=== PATIENT | male | born 1945 | race Caucasian/White ===

== ENCOUNTER 2022-07-13 12:04 | Inpatient (IN) | payer MEDICARE ==
[~2022-07-13] VITALS: Ht 175.3 cm; Wt 77.3 kg
[2022-07-13] MEDS ORDERED: albuterol 2.5 MG/3 ML nebule CONTNEB PRN ×2 (12:10→12:25)
--- NOTE | 2022-07-13 12:13 | NUR ---
PT PASSED STROKE ASSESSMENT FOR EMS. PT ABLE TO AMBULATE W/ASSIST TO GURNEY AND ANSWER QUESTIONS. ON ARRIVAL PT IS NOT RESPONSIVE.
[2022-07-13] MEDS ORDERED: ipratropium 0.5 MG/2.5ML nebule IH PRN (12:15)
[2022-07-13] MEDS ORDERED: LIDOcaine 2% 10ml TOPICAL JELLY (Urojet) TP ONE (12:15)
[2022-07-13 12:21] LABS: ABG BASE EXCESS 15.8 mmol/L (-2.0-2.0); ABG HCO3 51.3 mmol/L (22.0-26.0); ABG OXYGEN SATURATION 99.4 % (94-97); ABG PCO2 (T) > 150.0 mmHg (35.0-48.0); ABG PO2 (T) 287.6 mmHg (75.0-100.0); ALLEN'S TEST POSITIVE; FCOHb 0.5 % (0.0-3.9); FLOW 15 L/min; FMetHb 0.3 % (0.0-1.5); FO2Hb 98.6 % (94-97); TOTAL HEMOGLOBIN 12.4 G/dl (14.0-17.9)
[2022-07-13] MEDS ORDERED: normal saline 1000ML IV soln IVB ONE (12:25)
[2022-07-13] MEDS ORDERED: methylPREDNISolone sod succ 125mg/2ml vial IV ONE (12:25)
[2022-07-13] MEDS ORDERED: ipratropium 0.5 MG/2.5ML nebule IH ONE (12:25)
[2022-07-13] MEDS ORDERED: magnesium 2GM in 50ml NS 50 ML IV ONE (12:30)
[2022-07-13] MEDS ORDERED: cefepime 2g/NS 100ml ADVANTAGE 100 ML IV ONE (12:30)
[2022-07-13 12:34] LABS: HEMATOCRIT 35.9 % (42.0-52.0); HEMOGLOBIN 11.3 g/dl (14.0-17.9); MEAN CORPUSCULAR HEMOGLOBIN 31.7 PG (27.0-31.0); MEAN CORPUSCULAR HGB CONC 31.4 g/dL (33.0-36.5); RED BLOOD COUNT 3.56 X10'6 (4.70-6.10); WHITE BLOOD COUNT 8.7 X10'3 (4.5-11.0)
[2022-07-13 12:36] LABS: BASOPHILS % (AUTO) 0.1 % (0-1); EOSINOPHILS % (AUTO) 0 % (0-6); LYMPHOCYTES # (AUTO) 0.4 X10'3 (1.1-4.8); LYMPHOCYTES % (AUTO) 4.8 % (21-51); MEAN PLATELET VOLUME 8.9 FL (7.4-10.4); MONOCYTES # (AUTO) 0.6 X10'3 (0-0.9); MONOCYTES % (AUTO) 6.9 % (2-12); NEUTROPHILS # (AUTO) 7.7 X10'3 (1.8-7.7); NEUTROPHILS % (AUTO) 88.2 % (42-75); PLATELET COUNT 177 X10'3 (140-440); RED CELL DISTRIBUTION WIDTH 14.1 % (11.5-14.5)
[2022-07-13 12:38] LABS: D-DIMER 1.04 MG/L FEU (0-0.50)
[2022-07-13 12:40] LABS: CLARITY,URINE CLEAR (Clear); COLOR,URINE YELLOW (Yellow); GLUCOSE, URINE NEGATIVE (Neg); KETONES,URINE NEGATIVE (Neg); LEUKOCYTE ESTERASE ,URINE NEGATIVE (Neg); NITRITES, URINE NEGATIVE (Neg); OCCULT BLOOD,URINE LARGE (Neg); PROTEIN,URINE 100 mg/dl (Neg); UROBILINOGEN,URINE 0.2 E.U/dL (0.2-1.0)
[2022-07-13 12:45] LABS: UA COLLECTION TYPE NON-SPECIFIED
[2022-07-13 12:46] LABS: BACTERIA,URINE NONE SEEN /HPF (Neg); HYALINE CASTS 0-3 /LPF (NEGATIVE); MUCUS STRANDS FEW /LPF (Neg); RBC,URINE 0-2 /HPF (0-2); SQUAMOUS EPITHELIAL CELL,UR FEW /LPF (FEW); WBC,URINE 0-4 /HPF (0-4)
[2022-07-13 12:52] LABS: ALANINE AMINOTRANSFERASE 73 U/L (12-78); ALBUMIN/GLOBULIN RATIO 0.9 (1.1-1.5); ALKALINE PHOSPHATASE 87 IU/L (46-116); ASPARTATE AMINO TRANSFERASE 83 U/L (10-37); BILIRUBIN,TOTAL 0.3 MG/DL (0.1-1.0); BLOOD UREA NITROGEN 27 MG/DL (7-18); BUN/CREATININE RATIO 26.2 (5.4-32.0); CHLORIDE 99 MMOL/L (99-107); CREATININE 1.03 MG/DL (0.60-1.10); GLUCOSE 153 MG/DL (70-104); SODIUM 143 MMOL/L (135-145); TOTAL PROTEIN 8.3 G/DL (6.4-8.2); eGFR 70 ML/MIN
[2022-07-13 13:02] LABS: ANION GAP 1 (8-16)
[2022-07-13 13:05] LABS: POTASSIUM 6.2 MMOL/L (3.5-5.1); TOTAL CARBON DIOXIDE 42.7 MMOL/L (24-32)
[2022-07-13] MEDS ORDERED: dextrose 50%-water 50ml dispensing syringe IV ONE (13:20)
[2022-07-13] MEDS ORDERED: calcium chloride inj. 1,000 MG in normal saline 100ml IV soln 100 ML IV ONE ×4 (13:20)
[2022-07-13] MEDS ORDERED: insulin regular, human 10 units/0.1 ml syringe IV ONE (13:20)
[2022-07-13] MEDS ORDERED: aspirin 81mg tab.chew PO ONE (13:20)
[2022-07-13] MEDS ORDERED: iohexol 350MG/ML 100ml bottle IV ONE (13:24)
[2022-07-13] MEDS ORDERED: calcium chloride 100 MG/1 ML inj IV ONE (13:30)
[2022-07-13 13:37] LABS: ABG BASE EXCESS 11.7 mmol/L (-2.0-2.0); ABG OXYGEN SATURATION 91.9 % (94-97); ABG PCO2 (T) 98.7 mmHg (35.0-48.0); ABG PO2 (T) 58.4 mmHg (75.0-100.0); ALLEN'S TEST POSITIVE; FCOHb 0.7 % (0.0-3.9); FMetHb 0.1 % (0.0-1.5); FO2Hb 91.2 % (94-97); PATIENT TEMPERATURE 35.8; RESPIRATORY RATE 8 b/min
[2022-07-13 15:50] LABS: ABG BASE EXCESS 12.4 mmol/L (-2.0-2.0); ABG HCO3 42.6 mmol/L (22.0-26.0); ABG OXYGEN SATURATION 92.8 % (94-97); ABG PCO2 (T) 92.8 mmHg (35.0-48.0); ABG PO2 (T) 65.3 mmHg (75.0-100.0); ALLEN'S TEST POSITIVE; FCOHb 0.8 % (0.0-3.9); FMetHb 0.2 % (0.0-1.5); FO2Hb 91.9 % (94-97); PATIENT TEMPERATURE 37.1; RESPIRATORY RATE 8 b/min
[2022-07-13] MEDS ORDERED: morphine 4 MG/ML inj SYRINge IV ONE (16:00)
[2022-07-13] MEDS ORDERED: ondansetron/PF 4mg/2ml inj IV ONE (16:00)
[2022-07-13] MEDS ORDERED: FURO40TA4 PO (16:25)
[2022-07-13] MEDS ORDERED: IBUP-1985 PO (16:25)
[2022-07-13] MEDS ORDERED: ALBU18HF2 PO (16:25)
[2022-07-13] MEDS ORDERED: HYDR-3972 PO (16:25)
[2022-07-13] MEDS ORDERED: TRAZ-256 PO (16:25)
[2022-07-13] MEDS ORDERED: BACL20TA PO (16:25)
[2022-07-13] MEDS ORDERED: LISI40TA13 PO (16:25)
--- NOTE | 2022-07-13 16:26 | NUR ---
Medication reconciliation completed. RN advised son by beside to take medications back home since there are controlled medications (Lyle 10-325, trazadone)
[2022-07-13] MEDS ORDERED: diltiazem-D5W 125mg/125ml 125 ML IV SCH (16:40)
[2022-07-13] MEDS ORDERED: potassium Cl 40MEQ/1/2NS 520ml 520 ML IV PRN (16:40)
[2022-07-13] MEDS ORDERED: magnesium 4gm in 100ml NS 100 ML IV PRN (16:40)
[2022-07-13] MEDS ORDERED: acetaminophen 325mg tablet PO PRN ×2 (16:40)
[2022-07-13] MEDS ORDERED: ondansetron/PF 4mg/2ml inj IV PRN (16:40)
[2022-07-13] MEDS ORDERED: potassium Cl 20 mEq SR tablet PO PRN ×2 (16:40)
[2022-07-13] MEDS ORDERED: magnesium Cl slow-release 64mg tablet PO PRN (16:40)
[2022-07-13] MEDS ORDERED: morphine 2 MG/ML inj. syringe IV PRN (16:40)
[2022-07-13 16:43] LABS: ALBUMIN 3.8 G/DL (3.4-5.0); ANION GAP 1 (8-16); BLOOD UREA NITROGEN 26 MG/DL (7-18); BUN/CREATININE RATIO 27.1 (5.4-32.0); CHLORIDE 100 MMOL/L (99-107); CREATININE 0.96 MG/DL (0.60-1.10); GLUCOSE 154 MG/DL (70-104); POTASSIUM 5.1 MMOL/L (3.5-5.1); SODIUM 143 MMOL/L (135-145); eGFR 76 ML/MIN
[2022-07-13 16:51] LABS: CALCIUM 11.3 MG/DL (8.5-10.1)
[2022-07-13 16:52] LABS: TOTAL CARBON DIOXIDE 42.2 MMOL/L (24-32)
[2022-07-13] MEDS: diltiazem-NS 100mg/100ml 100 ML IV SCH (16:59)
[2022-07-13] MEDS: HYDROcodone/acetaminophen 5mg/325mg tablet PO PRN (17:48)
[2022-07-13] MEDS ORDERED: LORazepam 0.5 MG tablet PO PRN (18:20)
[2022-07-13] MEDS ORDERED: LORazepam 2 mg/ml vial IV PRN (18:20)
[2022-07-13] MEDS: levalbuterol 0.63mg/3ml nebule IH SCH ×2 (19:05→22:22)
[2022-07-13] MEDS: furosemide 40mg/4ml inj IV SCH (20:21)
[2022-07-13] MEDS: methylPREDNISolone sod succ 125mg/2ml vial IV SCH (20:27)
[2022-07-13] MEDS ORDERED: temazepam 15mg capsule PO PRN (21:00)
[2022-07-14] VITALS (8 sets, daily range): BP systolic 145–190; BP diastolic 86–116
[2022-07-14] MEDS: heparin, porcine 5000 units/ml vial SQ SCH ×3 (00:27→16:34)
[2022-07-14] MEDS: levalbuterol 0.63mg/3ml nebule IH SCH ×6 (02:27→23:13)
[2022-07-14 04:08] LABS: HEMOGLOBIN 10.9 g/dl (14.0-17.9); LYMPHOCYTES # (AUTO) 0.4 X10'3 (1.1-4.8); MEAN CORPUSCULAR HEMOGLOBIN 32.2 PG (27.0-31.0); MEAN CORPUSCULAR HGB CONC 32.3 g/dL (33.0-36.5); MONOCYTES # (AUTO) 0.1 X10'3 (0-0.9)
[2022-07-14 04:11] LABS: BASOPHILS % (AUTO) 0.3 % (0-1); EOSINOPHILS % (AUTO) 0.2 % (0-6); HEMATOCRIT 33.6 % (42.0-52.0); LYMPHOCYTES % (AUTO) 4.8 % (21-51); MEAN CORPUSCULAR VOLUME 99.5 FL (78-98); MEAN PLATELET VOLUME 9.6 FL (7.4-10.4); MONOCYTES % (AUTO) 1.7 % (2-12); NEUTROPHILS # (AUTO) 7.5 X10'3 (1.8-7.7); PLATELET COUNT 175 X10'3 (140-440); RED BLOOD COUNT 3.38 X10'6 (4.70-6.10); WHITE BLOOD COUNT 8.1 X10'3 (4.5-11.0)
[2022-07-14 04:29] LABS: ALANINE AMINOTRANSFERASE 69 U/L (12-78); ALBUMIN 3.7 G/DL (3.4-5.0); ALBUMIN/GLOBULIN RATIO 0.9 (1.1-1.5); ALKALINE PHOSPHATASE 83 IU/L (46-116); ANION GAP 2 (8-16); ASPARTATE AMINO TRANSFERASE 94 U/L (10-37); BILIRUBIN,TOTAL 0.4 MG/DL (0.1-1.0); BLOOD UREA NITROGEN 29 MG/DL (7-18); BUN/CREATININE RATIO 26.4 (5.4-32.0); CALCIUM 9.9 MG/DL (8.5-10.1); CHLORIDE 97 MMOL/L (99-107); GLUCOSE 197 MG/DL (70-104); POTASSIUM 4.6 MMOL/L (3.5-5.1); SODIUM 143 MMOL/L (135-145); TOTAL PROTEIN 7.7 G/DL (6.4-8.2); eGFR 65 ML/MIN
[2022-07-14 04:47] LABS: TOTAL CARBON DIOXIDE 43.7 MMOL/L (24-32)
[2022-07-14] MEDS: furosemide 40mg/4ml inj IV SCH ×2 (07:49→19:41)
[2022-07-14] MEDS: azithromycin/NS 500mg/250ml 250 ML IV SCH (07:50)
[2022-07-14] MEDS: methylPREDNISolone sod succ 125mg/2ml vial IV SCH ×2 (07:50→19:41)
[2022-07-14] MEDS: CefTRIAXone 2gm/D5W 50ml BAG 50 ML IV SCH (07:50)
[2022-07-14 11:53] LABS: ABG BASE EXCESS 22.4 mmol/L (-2.0-2.0); ABG OXYGEN SATURATION 95.6 % (94-97); ABG PCO2 (T) 74.2 mmHg (35.0-48.0); ABG PO2 (T) 77.2 mmHg (75.0-100.0); ALLEN'S TEST POSITIVE; FCOHb 0.3 % (0.0-3.9); FMetHb 0.1 % (0.0-1.5); FO2Hb 95.2 % (94-97); PATIENT TEMPERATURE 37.9; RESPIRATORY RATE 8 b/min; TOTAL HEMOGLOBIN 11.6 G/dl (14.0-17.9)
[2022-07-14] MEDS: diltiazem-NS 100mg/100ml 100 ML IV SCH (12:47)
[2022-07-14] MEDS: HYDROcodone/acetaminophen 5mg/325mg tablet PO PRN (16:27)
--- NOTE | 2022-07-14 17:40 | NUR ---
MD Bravo paged for hypertension 6402h Libert[place] Ibarra HTN 170-190s asymptomatic. May I have a PRN? Danna [id number]
[2022-07-14] MEDS ORDERED: ASPI-101 PO (19:19)
[2022-07-14] MEDS ORDERED: albuterol 2.5 MG/3 ML nebule NEB PRN (19:35)
[2022-07-14] MEDS ORDERED: hyDRALAzine 10mg tablet PO PRN (19:35)
[2022-07-14] MEDS ORDERED: HYDROcodone/acetaminophen 10/325mg tab PO PRN (20:05)
[2022-07-14] MEDS ORDERED: traZODone 50mg tablet PO PRN (20:15)
[2022-07-15] VITALS (15 sets, daily range): BP systolic 143–190; BP diastolic 78–103
[2022-07-15] MEDS: heparin, porcine 5000 units/ml vial SQ SCH ×2 (00:48→07:28)
[2022-07-15] MEDS: levalbuterol 0.63mg/3ml nebule IH SCH ×6 (04:20→23:09)
--- NOTE | 2022-07-15 07:10 | NUR ---
I received report from FABIAN Dyer. Pt had IV out upon original assessment with Mateo running. RN replaced PIV prior to leaving. Pt in no distress and vials same as baseline, will continue to monitor.
[2022-07-15 07:23] LABS: BASOPHILS % (AUTO) 0 % (0-1); EOSINOPHILS % (AUTO) 0 % (0-6); HEMATOCRIT 33.9 % (42.0-52.0); HEMOGLOBIN 11.2 g/dl (14.0-17.9); LYMPHOCYTES # (AUTO) 0.4 X10'3 (1.1-4.8); LYMPHOCYTES % (AUTO) 4.7 % (21-51); MEAN CORPUSCULAR HEMOGLOBIN 32.2 PG (27.0-31.0); MEAN CORPUSCULAR HGB CONC 33.1 g/dL (33.0-36.5); MEAN CORPUSCULAR VOLUME 97.5 FL (78-98); MONOCYTES # (AUTO) 0.4 X10'3 (0-0.9); MONOCYTES % (AUTO) 4.6 % (2-12); NEUTROPHILS % (AUTO) 90.7 % (42-75); PLATELET COUNT 188 X10'3 (140-440); RED BLOOD COUNT 3.48 X10'6 (4.70-6.10); RED CELL DISTRIBUTION WIDTH 13.7 % (11.5-14.5); WHITE BLOOD COUNT 8.8 X10'3 (4.5-11.0)
[2022-07-15] MEDS: diltiazem-NS 100mg/100ml 100 ML IV SCH (07:25)
[2022-07-15] MEDS: methylPREDNISolone sod succ 125mg/2ml vial IV SCH ×2 (07:30→20:32)
[2022-07-15] MEDS: furosemide 40mg/4ml inj IV SCH ×2 (07:30→20:33)
[2022-07-15] MEDS: lisinopril 20mg tablet PO SCH (07:30)
[2022-07-15] MEDS: HYDROcodone/acetaminophen 10/325mg tab PO PRN ×2 (07:35→17:30)
[2022-07-15 08:22] LABS: ALANINE AMINOTRANSFERASE 79 U/L (12-78); ALBUMIN 3.7 G/DL (3.4-5.0); ALBUMIN/GLOBULIN RATIO 0.9 (1.1-1.5); ALKALINE PHOSPHATASE 83 IU/L (46-116); ASPARTATE AMINO TRANSFERASE 66 U/L (10-37); BILIRUBIN,TOTAL 0.3 MG/DL (0.1-1.0); BLOOD UREA NITROGEN 37 MG/DL (7-18); CALCIUM 8.9 MG/DL (8.5-10.1); CHLORIDE 93 MMOL/L (99-107); CREATININE 1.12 MG/DL (0.60-1.10); GLUCOSE 220 MG/DL (70-104); POTASSIUM 3.5 MMOL/L (3.5-5.1); SODIUM 143 MMOL/L (135-145); TOTAL PROTEIN 7.7 G/DL (6.4-8.2); eGFR 64 ML/MIN
[2022-07-15 09:41] LABS: ANION GAP 0 (8-16)
[2022-07-15 09:43] LABS: TOTAL CARBON DIOXIDE 49.7 MMOL/L (24-32)
--- NOTE | 2022-07-15 10:01 | NUR ---
paged [phone] Amadou Ibarra. C02 49.7 up from 43.7 Danna PERALTA [phone]
[2022-07-15] MEDS: CefTRIAXone 2gm/D5W 50ml BAG 50 ML IV SCH (17:30)
[2022-07-15] MEDS: azithromycin/NS 500mg/250ml 250 ML IV SCH (17:31)
[2022-07-15] MEDS: apixaban 5mg tablet PO SCH (20:33)
[2022-07-16] VITALS (10 sets, daily range): BP systolic 100–155; BP diastolic 67–98
[2022-07-16] MEDS: HYDROcodone/acetaminophen 10/325mg tab PO PRN ×3 (01:33→23:08)
[2022-07-16] MEDS: levalbuterol 0.63mg/3ml nebule IH SCH ×6 (02:56→22:42)
[2022-07-16] MEDS: diltiazem-NS 100mg/100ml 100 ML IV SCH ×2 (05:35→22:39)
--- NOTE | 2022-07-16 07:11 | NUR ---
I received report from jseus Dyer addressed personal needs and pt is resting in no apparent distress, I will continue to monitor.
[2022-07-16] MEDS: CefTRIAXone 2gm/D5W 50ml BAG 50 ML IV SCH (07:36)
[2022-07-16] MEDS: azithromycin/NS 500mg/250ml 250 ML IV SCH (07:43)
[2022-07-16] MEDS: methylPREDNISolone sod succ 125mg/2ml vial IV SCH ×2 (07:49→20:39)
[2022-07-16] MEDS: apixaban 5mg tablet PO SCH ×2 (07:50→20:39)
[2022-07-16] MEDS: lisinopril 20mg tablet PO SCH (07:50)
[2022-07-16] MEDS: furosemide 40mg/4ml inj IV SCH ×2 (07:55→20:39)
[2022-07-16 08:21] LABS: BASOPHILS % (AUTO) 0 % (0-1); EOSINOPHILS % (AUTO) 0 % (0-6); HEMOGLOBIN 11.6 g/dl (14.0-17.9); LYMPHOCYTES # (AUTO) 0.3 X10'3 (1.1-4.8); MEAN CORPUSCULAR HEMOGLOBIN 32.5 PG (27.0-31.0); MEAN CORPUSCULAR HGB CONC 33.2 g/dL (33.0-36.5); MEAN CORPUSCULAR VOLUME 97.7 FL (78-98); MEAN PLATELET VOLUME 8.9 FL (7.4-10.4); MONOCYTES # (AUTO) 0.3 X10'3 (0-0.9); MONOCYTES % (AUTO) 4.6 % (2-12); NEUTROPHILS # (AUTO) 6.6 X10'3 (1.8-7.7); NEUTROPHILS % (AUTO) 91.4 % (42-75); PLATELET COUNT 183 X10'3 (140-440); RED BLOOD COUNT 3.58 X10'6 (4.70-6.10); RED CELL DISTRIBUTION WIDTH 14.2 % (11.5-14.5); WHITE BLOOD COUNT 7.3 X10'3 (4.5-11.0)
[2022-07-16 08:28] LABS: ALANINE AMINOTRANSFERASE 129 U/L (12-78); ALBUMIN 3.5 G/DL (3.4-5.0); ALBUMIN/GLOBULIN RATIO 0.9 (1.1-1.5); ALKALINE PHOSPHATASE 78 IU/L (46-116); ASPARTATE AMINO TRANSFERASE 64 U/L (10-37); BILIRUBIN,TOTAL 0.4 MG/DL (0.1-1.0); BLOOD UREA NITROGEN 33 MG/DL (7-18); CALCIUM 8.3 MG/DL (8.5-10.1); CHLORIDE 92 MMOL/L (99-107); CREATININE 0.97 MG/DL (0.60-1.10); GLUCOSE 213 MG/DL (70-104); SODIUM 141 MMOL/L (135-145); TOTAL PROTEIN 7.4 G/DL (6.4-8.2); eGFR 75 ML/MIN
[2022-07-16 08:47] LABS: ANION GAP -1 (8-16)
[2022-07-16 08:48] LABS: TOTAL CARBON DIOXIDE > 50 MMOL/L (24-32)
--- NOTE | 2022-07-16 08:59 | NUR ---
Page Sent promotional table spacer PAGER ID: [phone] MESSAGE: [id number] [place]. Ajith Co2 53.1. Danna @ 5441 (45 character message out of a maximum of 240) CLOSE [X] SEND ANOTHER PAGE Thank you for visiting [facility] promotional table spacer promotional table spacer
[2022-07-17] MEDS: levalbuterol 0.63mg/3ml nebule IH SCH ×6 (03:26→22:57)
[2022-07-17 04:11] VITALS: BP 140/84
[2022-07-17 06:00] VITALS: BP 129/89
--- NOTE | 2022-07-17 06:36 | NUR ---
Patient in room PCU 5756U. I have received report from Gina PERALTA and had the opportunity to ask questions and assume patient care. Pt is laying low fowlers in bed gettin am labs kaleb. Pt on bipap. No s/s of distress. No s/s of pain at this time. Pt on cardizem GTT running @ 5mg/hr. BLL, call light within reach, frequently used items in reach, frequent rounding, rn shift mgr socks on. Will continue to monitor.
[2022-07-17 07:24] LABS: BASOPHILS % (AUTO) 0.1 % (0-1); EOSINOPHILS % (AUTO) 0 % (0-6); HEMATOCRIT 35.4 % (42.0-52.0); HEMOGLOBIN 11.7 g/dl (14.0-17.9); LYMPHOCYTES # (AUTO) 0.3 X10'3 (1.1-4.8); LYMPHOCYTES % (AUTO) 4.7 % (21-51); MEAN CORPUSCULAR HEMOGLOBIN 32.6 PG (27.0-31.0); MEAN CORPUSCULAR VOLUME 98.9 FL (78-98); MEAN PLATELET VOLUME 8.8 FL (7.4-10.4); MONOCYTES # (AUTO) 0.3 X10'3 (0-0.9); MONOCYTES % (AUTO) 5.4 % (2-12); NEUTROPHILS # (AUTO) 5.8 X10'3 (1.8-7.7); NEUTROPHILS % (AUTO) 89.8 % (42-75); PLATELET COUNT 161 X10'3 (140-440); RED BLOOD COUNT 3.58 X10'6 (4.70-6.10); RED CELL DISTRIBUTION WIDTH 13.9 % (11.5-14.5); WHITE BLOOD COUNT 6.5 X10'3 (4.5-11.0)
[2022-07-17 07:46] LABS: ALANINE AMINOTRANSFERASE 176 U/L (12-78); ALBUMIN 2.7 G/DL (3.4-5.0); ALBUMIN/GLOBULIN RATIO 0.7 (1.1-1.5); ALKALINE PHOSPHATASE 70 IU/L (46-116); ANION GAP 4 (8-16); ASPARTATE AMINO TRANSFERASE 68 U/L (10-37); BILIRUBIN,TOTAL 0.4 MG/DL (0.1-1.0); BLOOD UREA NITROGEN 30 MG/DL (7-18); BUN/CREATININE RATIO 33.7 (5.4-32.0); CALCIUM 8.1 MG/DL (8.5-10.1); CHLORIDE 88 MMOL/L (99-107); CREATININE 0.89 MG/DL (0.60-1.10); GLUCOSE 226 MG/DL (70-104); POTASSIUM 4.1 MMOL/L (3.5-5.1); SODIUM 131 MMOL/L (135-145); TOTAL PROTEIN 6.7 G/DL (6.4-8.2); eGFR 83 ML/MIN
[2022-07-17] MEDS: CefTRIAXone 2gm/D5W 50ml BAG 50 ML IV SCH (07:53)
[2022-07-17] MEDS: lisinopril 20mg tablet PO SCH (07:54)
[2022-07-17] MEDS: apixaban 5mg tablet PO SCH ×2 (07:54→19:41)
[2022-07-17] MEDS: azithromycin/NS 500mg/250ml 250 ML IV SCH (07:54)
[2022-07-17] MEDS: methylPREDNISolone sod succ 125mg/2ml vial IV SCH ×2 (07:55→19:44)
[2022-07-17] MEDS: furosemide 40mg/4ml inj IV SCH ×2 (07:55→19:42)
[2022-07-17] MEDS: HYDROcodone/acetaminophen 10/325mg tab PO PRN ×2 (08:08→14:53)
[2022-07-17 11:00] VITALS: BP 155/77
[2022-07-17] MEDS: diltiazem 30mg tablet PO SCH ×2 (14:57→19:41)
[2022-07-17 18:00] VITALS: BP 151/56
--- NOTE | 2022-07-17 19:11 | NUR ---
Problems reprioritized. Patient report given, questions answered & plan of care reviewed with Elizabeth PERALTA.
[2022-07-17 22:00] VITALS: BP 135/63
[2022-07-18 02:00] VITALS: BP 154/99
[2022-07-18] MEDS: diltiazem 30mg tablet PO SCH ×3 (02:10→14:29)
[2022-07-18] MEDS: levalbuterol 0.63mg/3ml nebule IH SCH ×3 (03:20→11:04)
[2022-07-18] MEDS: HYDROcodone/acetaminophen 10/325mg tab PO PRN ×2 (03:33→12:59)
[2022-07-18 06:00] VITALS: BP 162/93
--- NOTE | 2022-07-18 06:30 | NUR ---
Patient in room PCU 3015. I have received report from FABIAN RUEDA, and had the opportunity to ask questions and assume patient care.
--- NOTE | 2022-07-18 06:54 | NUR ---
Problems reprioritized. Patient report given, questions answered & plan of care reviewed with Perla PERALTA.
[2022-07-18 07:04] LABS: ALANINE AMINOTRANSFERASE 233 U/L (12-78); ALBUMIN 3.3 G/DL (3.4-5.0); ALBUMIN/GLOBULIN RATIO 0.9 (1.1-1.5); ALKALINE PHOSPHATASE 87 IU/L (46-116); ASPARTATE AMINO TRANSFERASE 89 U/L (10-37); BILIRUBIN,TOTAL 0.3 MG/DL (0.1-1.0); BLOOD UREA NITROGEN 31 MG/DL (7-18); BUN/CREATININE RATIO 29.8 (5.4-32.0); CALCIUM 8.2 MG/DL (8.5-10.1); CHLORIDE 92 MMOL/L (99-107); CREATININE 1.04 MG/DL (0.60-1.10); GLUCOSE 205 MG/DL (70-104); POTASSIUM 3.2 MMOL/L (3.5-5.1); SODIUM 140 MMOL/L (135-145); TOTAL PROTEIN 6.9 G/DL (6.4-8.2); eGFR 70 ML/MIN
[2022-07-18 07:09] LABS: BASOPHILS % (AUTO) 0 % (0-1); EOSINOPHILS % (AUTO) 0 % (0-6); HEMATOCRIT 37.7 % (42.0-52.0); HEMOGLOBIN 12.4 g/dl (14.0-17.9); LYMPHOCYTES # (AUTO) 0.5 X10'3 (1.1-4.8); LYMPHOCYTES % (AUTO) 5.6 % (21-51); MEAN CORPUSCULAR HEMOGLOBIN 31.8 PG (27.0-31.0); MEAN CORPUSCULAR HGB CONC 32.9 g/dL (33.0-36.5); MEAN CORPUSCULAR VOLUME 96.7 FL (78-98); MEAN PLATELET VOLUME 8.9 FL (7.4-10.4); MONOCYTES # (AUTO) 1.2 X10'3 (0-0.9); NEUTROPHILS # (AUTO) 6.5 X10'3 (1.8-7.7); NEUTROPHILS % (AUTO) 79.4 % (42-75); PLATELET COUNT 198 X10'3 (140-440); RED CELL DISTRIBUTION WIDTH 13.6 % (11.5-14.5); WHITE BLOOD COUNT 8.2 X10'3 (4.5-11.0)
[2022-07-18 07:36] LABS: ANION GAP -1 (8-16)
[2022-07-18 07:38] LABS: TOTAL CARBON DIOXIDE 49.4 MMOL/L (24-32)
--- NOTE | 2022-07-18 07:42 | NUR ---
PAGE SENT PAGER ID: [phone] MESSAGE: [id number], ANA ROWAN, CRITICAL LAB CO2 49.4. PT'S K 3.2. MAY I PLEASE HAVE ELECTROLYE REPLACEMENTS? THANK YOU, JNEELLE Sanchez [phone]
[2022-07-18] MEDS: furosemide 40mg/4ml inj IV SCH (08:20)
[2022-07-18] MEDS: methylPREDNISolone sod succ 125mg/2ml vial IV SCH (08:24)
[2022-07-18] MEDS: CefTRIAXone 2gm/D5W 50ml BAG 50 ML IV SCH (08:24)
[2022-07-18] MEDS: lisinopril 20mg tablet PO SCH (08:27)
[2022-07-18] MEDS: apixaban 5mg tablet PO SCH (08:27)
[2022-07-18] MEDS ORDERED: potassium Cl 20 mEq SR tablet PO PRN (09:40)
[2022-07-18] MEDS ORDERED: magnesium 4gm in 100ml NS 100 ML IV PRN (09:40)
[2022-07-18] MEDS ORDERED: magnesium Cl slow-release 64mg tablet PO PRN (09:40)
[2022-07-18] MEDS ORDERED: potassium Cl 40MEQ/1/2NS 520ml 520 ML IV PRN (09:40)
[2022-07-18] MEDS: azithromycin/NS 500mg/250ml 250 ML IV SCH (09:43)
[2022-07-18 10:00] LABS: MAGNESIUM 2.4 MG/DL (1.5-2.4)
[2022-07-18] MEDS: potassium Cl 20 mEq SR tablet PO PRN ×2 (10:35→14:29)
[2022-07-18 11:03] VITALS: BP 143/88
[2022-07-18 14:30] VITALS: BP 147/91
--- NOTE | 2022-07-18 14:55 | NUR ---
PT STABLE FOR TRANSFER PER MD. BIPAP MASK WAS SENT WITH PT. HAND OFF GIVEN TO FABIAN AMAYA AT [facility]. PT TRANSFERRED BY TRANSFER SERVICE. TELE BOX REMOVED. PIV'S REMOVED WITH TIPS INTACT.
[2022-07-18] MEDS ORDERED: K and/or MAG REPLACEMENT MC SCH (20:00)
== END 2022-07-18 15:10 | DRG 189 ==
LOC: ER 12:05 → ED HOLD 16:46 → EDBEDREQ 07-14 04:44 → PCU 3S 07-14 14:19
PROVIDERS: ADMIT Internal Medicine; ATTEND Internal Medicine
PROC: 5A09357 Assistance with Respiratory Ventilation, Less than 24 Consecutive Hours, Continuous Positive Airway Pressure (ICD-10-PCS; principal; 2022-07-13)
PROC: 5A09357 Assistance with Respiratory Ventilation, Less than 24 Consecutive Hours, Continuous Positive Airway Pressure (ICD-10-PCS; 2022-07-15)
PROC: 5A09357 Assistance with Respiratory Ventilation, Less than 24 Consecutive Hours, Continuous Positive Airway Pressure (ICD-10-PCS; 2022-07-16)
PROC: 0W993ZZ Drainage of Right Pleural Cavity, Percutaneous Approach (ICD-10-PCS; 2022-07-16)
PROC: 5A09357 Assistance with Respiratory Ventilation, Less than 24 Consecutive Hours, Continuous Positive Airway Pressure (ICD-10-PCS; 2022-07-17)
PROC: 5A09357 Assistance with Respiratory Ventilation, Less than 24 Consecutive Hours, Continuous Positive Airway Pressure (ICD-10-PCS; 2022-07-18)
DX: J96.20 Acute and chronic respiratory failure, unspecified whether with hypoxia or hypercapnia (principal); I21.A1 Myocardial infarction type 2; I50.23 Acute on chronic systolic (congestive) heart failure; I48.92 Unspecified atrial flutter; J91.8 Pleural effusion in other conditions classified elsewhere; I11.0 Hypertensive heart disease with heart failure; I48.91 Unspecified atrial fibrillation; E87.5 Hyperkalemia; Z20.822 Contact with and (suspected) exposure to COVID-19; J43.9 Emphysema, unspecified; Z87.891 Personal history of nicotine dependence; Z99.81 Dependence on supplemental oxygen
CPT/HCPCS: 36415; 36600; 70450; 71045; 71275; 76604; 80048; 80053; 81001; 82803; 82948; 83605; 83735; 83880; 84145; 84484; 85018; 85025; 85379; 87040; 87502; 87503; 87811; 93005; 93308; 94640; 94660; 94760; 97116; 97161; 97530; 99291; A7015; G0378; J0456; J0692; J0696; J1644; J1815; J1940; J2270; J2405; J2930; J3475; J3490; J7030; J7040; J7614; Q9967

== ENCOUNTER 2022-09-23 19:51 | Inpatient (IN) | payer MEDICARE ==
[~2022-09-23] VITALS: Ht 172.7 cm; Wt 81.5 kg
[~2022-09-23 19:51] MED LIST: ACET-1013 PO; ALBU18HF2 PO; AMIO200T67 PO; APIX5TAB3 PO; ASPI-101 PO; ATOR20TA66 PO; BISA-172 PO; FLUT1BLS4 INH; FURO40TA4 PO; GLUC1KIT IM; HYDR-3972 PO; INSU100C10 SQ; LEVA0.6319 NEB; LISI10TA27 PO; MAGN400O6 PO; METF-436 PO; NA P133E4 RC; POTA-207 PO; TEMA15CA PO; TRAZ-251 PO
[2022-09-23] MEDS ORDERED: ipratropium 0.5 MG/2.5ML nebule IH ONE (20:00)
[2022-09-23] MEDS ORDERED: albuterol 2.5 MG/3 ML nebule CONTNEB PRN (20:00)
[2022-09-23] MEDS ORDERED: methylPREDNISolone sod succ 125mg/2ml vial IV ONE (20:05)
[2022-09-23] MEDS ORDERED: magnesium 2GM in 50ml NS 50 ML IV ONE (20:10)
[2022-09-23 20:21] LABS: BASOPHILS # (AUTO) 0.1 X10'3 (0-0.2); BASOPHILS % (AUTO) 0.8 % (0-1); EOSINOPHILS # (AUTO) 0.3 X10'3 (0-0.9); EOSINOPHILS % (AUTO) 2.1 % (0-6); HEMATOCRIT 39.6 % (42.0-52.0); HEMOGLOBIN 12.7 g/dl (14.0-17.9); LYMPHOCYTES # (AUTO) 2.2 X10'3 (1.1-4.8); LYMPHOCYTES % (AUTO) 17.5 % (21-51); MEAN CORPUSCULAR HEMOGLOBIN 31.8 PG (27.0-31.0); MEAN CORPUSCULAR HGB CONC 32.1 g/dL (33.0-36.5); MEAN CORPUSCULAR VOLUME 99.3 FL (78-98); MEAN PLATELET VOLUME 8.2 FL (7.4-10.4); MONOCYTES # (AUTO) 0.9 X10'3 (0-0.9); MONOCYTES % (AUTO) 7.3 % (2-12); NEUTROPHILS # (AUTO) 8.9 X10'3 (1.8-7.7); NEUTROPHILS % (AUTO) 72.3 % (42-75); PLATELET COUNT 239 X10'3 (140-440); RED BLOOD COUNT 3.99 X10'6 (4.70-6.10); RED CELL DISTRIBUTION WIDTH 14.9 % (11.5-14.5); WHITE BLOOD COUNT 12.4 X10'3 (4.5-11.0)
[2022-09-23 20:30] LABS: ABG BASE EXCESS 1.1 mmol/L (-2.0-2.0); ABG OXYGEN SATURATION 98.8 % (94-97); ABG PO2 (T) 146.9 mmHg (75.0-100.0); ALLEN'S TEST POSITIVE; FCOHb 0.8 % (0.0-3.9); FMetHb 0.3 % (0.0-1.5); FO2Hb 97.7 % (94-97); RESPIRATORY RATE 12 b/min; TOTAL HEMOGLOBIN 13.4 G/dl (14.0-17.9)
[2022-09-23 20:33] LABS: ALANINE AMINOTRANSFERASE 24 U/L (12-78); ALBUMIN 3.8 G/DL (3.4-5.0); ALKALINE PHOSPHATASE 106 IU/L (46-116); ANION GAP 8 (8-16); ASPARTATE AMINO TRANSFERASE 21 U/L (10-37); BILIRUBIN,TOTAL 0.3 MG/DL (0.1-1.0); BLOOD UREA NITROGEN 13 MG/DL (7-18); BUN/CREATININE RATIO 10.2 (10.0-20.0); CALCIUM 8.8 MG/DL (8.5-10.1); CHLORIDE 99 MMOL/L (99-107); CREATININE 1.27 MG/DL (0.60-1.10); GLUCOSE 352 MG/DL (70-104); POTASSIUM 4.9 MMOL/L (3.5-5.1); SODIUM 138 MMOL/L (135-145); TOTAL CARBON DIOXIDE 31.3 MMOL/L (24-32); TOTAL PROTEIN 7.8 G/DL (6.4-8.2); eGFR 55 ML/MIN
[2022-09-23] MEDS ORDERED: cefepime 2g/NS 100ml ADVANTAGE 100 ML IV ONE (21:00)
[2022-09-23] MEDS ORDERED: magnesium 4gm in 100ml NS 100 ML IV PRN (21:25)
[2022-09-23] MEDS ORDERED: magnesium hydroxide 30ml (MOM) UD suspension PO PRN (21:25)
[2022-09-23] MEDS ORDERED: potassium Cl 20 mEq SR tablet PO PRN ×2 (21:25)
[2022-09-23] MEDS ORDERED: ondansetron/PF 4mg/2ml inj IV PRN (21:25)
[2022-09-23] MEDS ORDERED: mag hydrox/Alum hydrox/simeth 30ml oral suspension PO PRN (21:25)
[2022-09-23] MEDS ORDERED: acetaminophen 325mg tablet PO PRN (21:25)
[2022-09-23] MEDS ORDERED: magnesium Cl slow-release 64mg tablet PO PRN (21:25)
[2022-09-23] MEDS ORDERED: potassium Cl 40MEQ/1/2NS 520ml 520 ML IV PRN (21:25)
[2022-09-23] MEDS ORDERED: diltiazem 5mg/ml 5ml inj. IV ONE (21:35)
[2022-09-23] MEDS ORDERED: aspirin 81mg tab.chew PO ONE (22:00)
[2022-09-23] MEDS ORDERED: DEXTROSE 15 GM of carb/4 tabs (each vial/BOTTLE has 4 tablets) PO PRN ×2 (22:10)
[2022-09-23] MEDS ORDERED: glucagon, human recombinant 1mg kit SUBCUT PRN (22:10)
[2022-09-23] MEDS ORDERED: MESSAGE TO PHARMACY PO ONE (22:10)
[2022-09-23] MEDS ORDERED: pantoprazole 40mg IV 80 MG in normal saline 100ml IV soln 100 ML IV ONE (22:10)
[2022-09-23] MEDS ORDERED: dextrose 50%-water 50ml dispensing syringe IV PRN ×2 (22:10)
[2022-09-23 22:25] LABS: D-DIMER 0.42 MG/L FEU (0-0.50)
[2022-09-23] MEDS: normal saline 1000ml 1,000 ML IV SCH (22:26)
[2022-09-23 22:37] LABS: CREATINE KINASE 78 U/L (39-308)
[2022-09-24] VITALS (12 sets, daily range): BP systolic 114–177; BP diastolic 67–122
[2022-09-24 00:06] LABS: CLARITY,URINE SLIGHTLY CLOUDY (Clear); COLOR,URINE YELLOW (Yellow); GLUCOSE, URINE NEGATIVE (Neg); KETONES,URINE NEGATIVE (Neg); LEUKOCYTE ESTERASE ,URINE NEGATIVE (Neg); NITRITES, URINE NEGATIVE (Neg); OCCULT BLOOD,URINE TRACE-INTACT (Neg); PROTEIN,URINE 100 mg/dl (Neg); UROBILINOGEN,URINE 0.2 E.U/dL (0.2-1.0)
[2022-09-24 00:10] LABS: UA COLLECTION TYPE FOLEY CATH
[2022-09-24 00:18] LABS: BACTERIA,URINE FEW /HPF (Neg); SQUAMOUS EPITHELIAL CELL,UR FEW /LPF (FEW)
[2022-09-24 00:19] LABS: COARSE GRANULAR CAST 0-3 /LPF (NEGATIVE)
[2022-09-24 00:32] LABS: URINE AMPHETAMINE SCREEN NEGATIVE (Neg); URINE BARBITUATE SCREEN NEGATIVE (Neg); URINE BENZODIAZEPINES SCREEN NEGATIVE (Neg); URINE CANNABINOID SCREEN NEGATIVE (Neg); URINE COCAINE SCREEN NEGATIVE (Neg); URINE METHADONE SCREEN NEGATIVE (Neg); URINE OPIATE SCREEN NEGATIVE (Neg); URINE PHENCYCLIDINE SCREEN NEGATIVE (Neg)
[2022-09-24] MEDS ORDERED: MELA3TAB70 PO (00:37)
[2022-09-24] MEDS ORDERED: CYAN100082 PO (00:37)
[2022-09-24] MEDS ORDERED: POTA-82 PO (00:37)
[2022-09-24] MEDS ORDERED: AMIO200T27 PO (00:37)
[2022-09-24] MEDS ORDERED: HYDR-3972 PO (00:37)
[2022-09-24] MEDS ORDERED: ATOR40TA71 PO (00:47)
[2022-09-24] MEDS ORDERED: APIX5TAB3 PO (00:47)
[2022-09-24] MEDS ORDERED: FLUT1BLS4 INH (00:47)
[2022-09-24] MEDS ORDERED: LISI20TA28 PO (00:47)
[2022-09-24] MEDS ORDERED: ASPI-1071 PO (00:47)
[2022-09-24] MEDS ORDERED: ALBU18HF2 INH (00:47)
[2022-09-24] MEDS ORDERED: TIZA4CAP PO (00:47)
[2022-09-24] MEDS ORDERED: FURO-150 PO (00:47)
[2022-09-24] MEDS ORDERED: TEMA15CA5 PO (00:47)
[2022-09-24] MEDS ORDERED: FURO40TA4 PO (00:55)
--- NOTE | 2022-09-24 01:05 | NUR ---
patient requesting to be put back on Bipap c/o "feeling tight". Stable oxygen saturation.
[2022-09-24] MEDS ORDERED: temazepam 15mg capsule PO PRN (02:40)
[2022-09-24 06:07] LABS: BASOPHILS % (AUTO) 0.3 % (0-1); EOSINOPHILS % (AUTO) 0 % (0-6); HEMATOCRIT 36.9 % (42.0-52.0); LYMPHOCYTES # (AUTO) 0.3 X10'3 (1.1-4.8); LYMPHOCYTES % (AUTO) 4.4 % (21-51); MEAN CORPUSCULAR HEMOGLOBIN 32.1 PG (27.0-31.0); MEAN CORPUSCULAR HGB CONC 32.5 g/dL (33.0-36.5); MEAN CORPUSCULAR VOLUME 98.7 FL (78-98); MEAN PLATELET VOLUME 9.1 FL (7.4-10.4); MONOCYTES # (AUTO) 0.1 X10'3 (0-0.9); MONOCYTES % (AUTO) 0.9 % (2-12); NEUTROPHILS # (AUTO) 6.3 X10'3 (1.8-7.7); NEUTROPHILS % (AUTO) 94.4 % (42-75); PLATELET COUNT 196 X10'3 (140-440); RED BLOOD COUNT 3.73 X10'6 (4.70-6.10); RED CELL DISTRIBUTION WIDTH 14.7 % (11.5-14.5); WHITE BLOOD COUNT 6.7 X10'3 (4.5-11.0)
[2022-09-24 06:20] LABS: ALANINE AMINOTRANSFERASE 26 U/L (12-78); ALBUMIN 3.4 G/DL (3.4-5.0); ALBUMIN/GLOBULIN RATIO 0.9 (1.1-1.5); ALKALINE PHOSPHATASE 85 IU/L (46-116); ANION GAP 5 (8-16); ASPARTATE AMINO TRANSFERASE 17 U/L (10-37); BILIRUBIN,TOTAL 0.3 MG/DL (0.1-1.0); BLOOD UREA NITROGEN 15 MG/DL (7-18); BUN/CREATININE RATIO 14.9 (10.0-20.0); CALCIUM 8.8 MG/DL (8.5-10.1); CHLORIDE 101 MMOL/L (99-107); CREATININE 1.01 MG/DL (0.60-1.10); GLUCOSE 248 MG/DL (70-104); MAGNESIUM 2.5 MG/DL (1.5-2.4); PHOSPHORUS 3.4 MG/DL (2.3-4.5); SODIUM 139 MMOL/L (135-145); TOTAL PROTEIN 7.3 G/DL (6.4-8.2); eGFR 72 ML/MIN
--- NOTE | 2022-09-24 06:49 | NUR ---
Patient in room ORTHO 4023. I have received report from Ina PERALTA and had the opportunity to ask questions and assume patient care.
[2022-09-24] MEDS: ipratropium/albuterol 3ml nebule NEB PRN ×2 (07:10→12:12)
[2022-09-24 07:15] LABS: APTT 26 SECONDS (22-32)
[2022-09-24 07:25] LABS: ABG HCO3 30.9 mmol/L (22.0-26.0); ABG OXYGEN SATURATION 98.6 % (94-97); ABG PCO2 (T) 57.2 mmHg (35.0-48.0); ABG PO2 (T) 135.9 mmHg (75.0-100.0); ALLEN'S TEST POSITIVE; FMetHb 0.2 % (0.0-1.5); FO2Hb 98.4 % (94-97); PEEP 8 cm H2O; RESPIRATORY RATE 10 b/min; TOTAL HEMOGLOBIN 12.5 G/dl (14.0-17.9)
--- NOTE | 2022-09-24 07:49 | NUR ---
PAGER ID: [phone] MESSAGE: [id number] [place] Patient doesn't have a diet order. Thank you Gris MO x [phone]
[2022-09-24] MEDS ORDERED: tizanidine 4mg tablet PO SCH ×2 (08:00→10:22)
[2022-09-24] MEDS: K and/or MAG REPLACEMENT MC SCH ×2 (08:00→19:04)
[2022-09-24] MEDS ORDERED: aspirin 81mg tab.chew PO SCH (08:30)
[2022-09-24] MEDS: normal saline 1000ml 1,000 ML IV SCH (08:32)
[2022-09-24] MEDS: aspirin 81mg, enteric-coated 1 TAB TABLET.DR PO SCH (08:32)
[2022-09-24] MEDS: atorvastatin 20mg tablet PO SCH (08:33)
[2022-09-24] MEDS: lisinopril 20mg tablet PO SCH (08:33)
[2022-09-24] MEDS: apixaban 5mg tablet PO SCH ×2 (08:33→19:02)
[2022-09-24] MEDS: amiodarone 200mg tablet PO SCH (08:33)
[2022-09-24] MEDS: docusate sod 100mg capsule PO SCH ×2 (08:33→19:02)
--- NOTE | 2022-09-24 08:47 | NUR ---
Spoke with Dr Gordon about patient not having a diet order. He gave verbal order for HH/ CC diet.
[2022-09-24] MEDS: methylPREDNISolone sod succ 125mg/2ml vial IV SCH ×2 (09:18→19:03)
[2022-09-24] MEDS: CefTRIAXone/D5W-Rocephin 1gm 50 ML IV SCH (09:18)
--- NOTE | 2022-09-24 09:27 | NUR ---
promotional table spacer PAGER ID: [phone] MESSAGE: [id number] Fred patient got removed from Bi-pap and is now having chest pain it isn't radiating at this time. We are going to do another EKG. Can we get trops? Thank you Gris MO [phone]
[2022-09-24] MEDS ORDERED: furosemide 40mg/4ml inj IV STA (09:58)
--- NOTE | 2022-09-24 10:00 | NUR ---
0927 Patient began complaining of pressure in his chest to RN. Bi-pap was removed around 0900 by RT and swapped to NC 2L. 0930 BP 172/155 pulse 136, 0931 BP 152/122 pulse 136. environmental health and safety intern called and rapid @0936 BP 128/92 and pulse 108. EKG ran. Opal melgar RN from CICU came and evaluated patient. CICU charge believes it is due to respiratory issues. Bi-pap put back on patient. EKG reviewed by ER MD. 943 BP 158/104 Pulse 136. environmental health and safety intern gave scheduled Solumedrol. Dr Gordon came in and evaluated patient. Gave verbal order for 40 mg Lasix BID and a 1x dose now. Also stop the continuous NS.
[2022-09-24] MEDS: azithromycin/NS 500mg/250ml 250 ML IV SCH (10:04)
--- NOTE | 2022-09-24 10:21 | NUR ---
Patient refused medication, he normally takes it at night.
[2022-09-24] MEDS: insulin Lispro (HumaLOG) vial - multi-dose SQ SCH (13:20)
--- NOTE | 2022-09-24 15:10 | NUR ---
PAGER ID: [phone] MESSAGE: [id number] Adrian Ibarra Patients HR is still in 130s [id number]
--- NOTE | 2022-09-24 16:21 | NUR ---
PAGER ID: [phone] MESSAGE: [id number] Fred BP 114/67, HR 136, RR 15. Thank you Gris MO [phone]
[2022-09-24] MEDS: HYDROcodone/acetaminophen 10/325mg tab PO PRN ×2 (17:39→23:19)
--- NOTE | 2022-09-24 17:46 | NUR ---
PAGER ID: [phone] MESSAGE: [id number] Fred Patient's HR sustaining 140 for more than 5 minutes, RR 22, BP: 148/109on the R and 151/104 on the L. He is also requesting nasal spray. Thank you Gris MO [phone]
[2022-09-24] MEDS ORDERED: salt irrigation nasal spray 45 ML SPRAY NS PRN (17:50)
[2022-09-24] MEDS ORDERED: diltiazem CD 180mg cap (once-daily) PO ONE (17:50)
--- NOTE | 2022-09-24 17:51 | NUR ---
Spoke with Dr Gordon he gave verbal order for Cardizem CD 180 mg and saline spray.
--- NOTE | 2022-09-24 18:24 | NUR ---
Problems reprioritized. Patient report given, questions answered & plan of care reviewed with Ina PERALTA.
[2022-09-24] MEDS: furosemide 40mg/4ml inj IV SCH (19:03)
[2022-09-24] MEDS: Melatonin 3mg tablet PO SCH (19:10)
--- NOTE | 2022-09-24 21:00 | NUR ---
Spoke to Dr. Teran on the phone regarding blood glucose of 415. aware pt is refusing short acting insulin. Okay to give lantus according to the protocol and chart "pt refusing short-acting insulin." Orders to switch fluids from D5 1/2 NS to NS. Addendum: 09/24/22 at 2 by Ina Saldana RN Disregard note. Entered on incorrect patient.
[2022-09-25 02:00] VITALS: BP 139/82
[2022-09-25] MEDS: ipratropium/albuterol 3ml nebule NEB PRN ×4 (03:29→15:40)
--- NOTE | 2022-09-25 06:15 | NUR ---
Patient in room ORTHO 4023. I have received report from Ina PERALTA and had the opportunity to ask questions and assume patient care.
[2022-09-25 06:30] VITALS: BP 93/74
[2022-09-25 06:34] LABS: BASOPHILS % (AUTO) 0 % (0-1); EOSINOPHILS % (AUTO) 0 % (0-6); HEMOGLOBIN 11.8 g/dl (14.0-17.9); LYMPHOCYTES # (AUTO) 0.5 X10'3 (1.1-4.8); LYMPHOCYTES % (AUTO) 4.1 % (21-51); MEAN CORPUSCULAR HEMOGLOBIN 32.3 PG (27.0-31.0); MEAN CORPUSCULAR HGB CONC 32.7 g/dL (33.0-36.5); MEAN CORPUSCULAR VOLUME 98.6 FL (78-98); MEAN PLATELET VOLUME 9.1 FL (7.4-10.4); MONOCYTES # (AUTO) 0.3 X10'3 (0-0.9); NEUTROPHILS # (AUTO) 11.9 X10'3 (1.8-7.7); NEUTROPHILS % (AUTO) 93.9 % (42-75); PLATELET COUNT 206 X10'3 (140-440); RED BLOOD COUNT 3.65 X10'6 (4.70-6.10); RED CELL DISTRIBUTION WIDTH 14.8 % (11.5-14.5); WHITE BLOOD COUNT 12.7 X10'3 (4.5-11.0)
[2022-09-25 06:39] LABS: APTT 27 SECONDS (22-32)
[2022-09-25 06:56] LABS: ALANINE AMINOTRANSFERASE 19 U/L (12-78); ALBUMIN 3.5 G/DL (3.4-5.0); ALKALINE PHOSPHATASE 70 IU/L (46-116); ANION GAP 5 (8-16); ASPARTATE AMINO TRANSFERASE 14 U/L (10-37); BILIRUBIN,TOTAL 0.4 MG/DL (0.1-1.0); BLOOD UREA NITROGEN 27 MG/DL (7-18); BUN/CREATININE RATIO 23.9 (10.0-20.0); CALCIUM 9.2 MG/DL (8.5-10.1); CHLORIDE 99 MMOL/L (99-107); CREATININE 1.13 MG/DL (0.60-1.10); GLUCOSE 208 MG/DL (70-104); MAGNESIUM 2.3 MG/DL (1.5-2.4); PHOSPHORUS 4.3 MG/DL (2.3-4.5); POTASSIUM 4.4 MMOL/L (3.5-5.1); SODIUM 139 MMOL/L (135-145); TOTAL CARBON DIOXIDE 35.2 MMOL/L (24-32); TOTAL PROTEIN 7.1 G/DL (6.4-8.2); eGFR 63 ML/MIN
[2022-09-25] MEDS: apixaban 5mg tablet PO SCH ×2 (07:43→20:25)
[2022-09-25] MEDS: HYDROcodone/acetaminophen 10/325mg tab PO PRN ×2 (07:43→14:36)
[2022-09-25] MEDS: atorvastatin 20mg tablet PO SCH (07:43)
[2022-09-25] MEDS: amiodarone 200mg tablet PO SCH (07:44)
[2022-09-25] MEDS: docusate sod 100mg capsule PO SCH ×2 (07:44→19:13)
[2022-09-25] MEDS: aspirin 81mg, enteric-coated 1 TAB TABLET.DR PO SCH (07:44)
[2022-09-25] MEDS: lisinopril 20mg tablet PO SCH (07:46)
[2022-09-25] MEDS: furosemide 40mg/4ml inj IV SCH ×2 (08:00→20:26)
[2022-09-25] MEDS: K and/or MAG REPLACEMENT MC SCH ×2 (08:00→19:08)
--- NOTE | 2022-09-25 08:03 | NUR ---
PAGER ID: [phone] MESSAGE: [id number] Fred Patient's HR is in the 140's for 5 minutes current BP is 114/82. Gave scheduled lisinopril and amiodarone. Thank you Gris MO [phone]
--- NOTE | 2022-09-25 08:30 | NUR ---
Spoke with Dr Gordon notified him of BP and HR. Gave verbal order for Cardizem 30mg PO Q6 hours and a chest CT.
[2022-09-25] MEDS: insulin Lispro (HumaLOG) vial - multi-dose SQ SCH ×3 (09:17→20:20)
--- NOTE | 2022-09-25 09:24 | NUR ---
DM Consult: Pt hx DM A1C 6.9% recently on 08/11 per EMR; appropriate per ADA guidelines. Addendum: 09/25/22 at [address] Amended: Links added.
[2022-09-25] MEDS: methylPREDNISolone sod succ 125mg/2ml vial IV SCH ×2 (09:25→20:26)
[2022-09-25] MEDS: azithromycin/NS 500mg/250ml 250 ML IV SCH (09:25)
[2022-09-25] MEDS: diltiazem 30mg tablet PO SCH ×3 (09:26→20:25)
[2022-09-25] MEDS: CefTRIAXone/D5W-Rocephin 1gm 50 ML IV SCH (09:27)
[2022-09-25 10:00] VITALS: BP 136/77
[2022-09-25] MEDS: budesonide 0.5mg/2ml UD nebule IH SCH (11:58)
[2022-09-25] MEDS ORDERED: iohexol 300mg/ml 100ml inj. ONE (12:51)
[2022-09-25 14:00] VITALS: BP 127/70
[2022-09-25] MEDS ORDERED: ondansetron 4mg rapidly disintigrating tab PO PRN (14:20)
--- NOTE | 2022-09-25 16:15 | NUR ---
Patient discharged home. Belongings and discharge instructions sent with patient. IV removed and telephone claims representative removed and returned to telephone claims representative. No new medications. Addendum: 09/25/22 at 1649 by ADALID SIERRA LVN Wrong patient
[2022-09-25 18:00] VITALS: BP 142/79
--- NOTE | 2022-09-25 18:18 | NUR ---
Agree with CORRECTIONS COUNSELOR assessment, added my own findings.
--- NOTE | 2022-09-25 18:21 | NUR ---
Problems reprioritized. Patient report given, questions answered & plan of care reviewed with Steve PERALTA.
[2022-09-25] MEDS: tizanidine 4mg tablet PO SCH (20:25)
[2022-09-25] MEDS: Melatonin 3mg tablet PO SCH (20:26)
--- NOTE | 2022-09-25 21:57 | NUR ---
telemetry called - patient just converted to SR at 2145. rate in 70's.
[2022-09-25 22:00] VITALS: BP 101/57
[2022-09-26 02:00] VITALS: BP 105/63
[2022-09-26] MEDS: diltiazem 30mg tablet PO SCH ×2 (02:00→07:45)
[2022-09-26] MEDS: HYDROcodone/acetaminophen 10/325mg tab PO PRN ×4 (05:15→21:28)
[2022-09-26 06:18] LABS: BASOPHILS % (AUTO) 0.1 % (0-1); EOSINOPHILS % (AUTO) 0 % (0-6); HEMATOCRIT 35.3 % (42.0-52.0); HEMOGLOBIN 11.5 g/dl (14.0-17.9); LYMPHOCYTES # (AUTO) 0.4 X10'3 (1.1-4.8); LYMPHOCYTES % (AUTO) 3.3 % (21-51); MEAN CORPUSCULAR HEMOGLOBIN 31.8 PG (27.0-31.0); MEAN CORPUSCULAR HGB CONC 32.5 g/dL (33.0-36.5); MEAN CORPUSCULAR VOLUME 97.9 FL (78-98); MEAN PLATELET VOLUME 8.7 FL (7.4-10.4); MONOCYTES # (AUTO) 0.2 X10'3 (0-0.9); MONOCYTES % (AUTO) 1.6 % (2-12); NEUTROPHILS # (AUTO) 10.9 X10'3 (1.8-7.7); PLATELET COUNT 196 X10'3 (140-440); RED CELL DISTRIBUTION WIDTH 14.7 % (11.5-14.5); WHITE BLOOD COUNT 11.5 X10'3 (4.5-11.0)
[2022-09-26 06:23] LABS: ALANINE AMINOTRANSFERASE 19 U/L (12-78); ALBUMIN 3.5 G/DL (3.4-5.0); ALKALINE PHOSPHATASE 67 IU/L (46-116); ANION GAP 2 (8-16); ASPARTATE AMINO TRANSFERASE 12 U/L (10-37); BILIRUBIN,TOTAL 0.3 MG/DL (0.1-1.0); BLOOD UREA NITROGEN 38 MG/DL (7-18); CHLORIDE 98 MMOL/L (99-107); CREATININE 1.15 MG/DL (0.60-1.10); GLUCOSE 173 MG/DL (70-104); MAGNESIUM 2.4 MG/DL (1.5-2.4); PHOSPHORUS 4.8 MG/DL (2.3-4.5); SODIUM 140 MMOL/L (135-145); TOTAL CARBON DIOXIDE 39.7 MMOL/L (24-32); TOTAL PROTEIN 7.1 G/DL (6.4-8.2); eGFR 62 ML/MIN
[2022-09-26 06:28] LABS: APTT 25 SECONDS (22-32)
[2022-09-26 07:00] VITALS: BP 130/72
[2022-09-26] MEDS: furosemide 40mg/4ml inj IV SCH ×2 (07:44→19:32)
[2022-09-26] MEDS: methylPREDNISolone sod succ 125mg/2ml vial IV SCH ×2 (07:44→19:32)
[2022-09-26] MEDS: tizanidine 4mg tablet PO SCH ×2 (07:44→19:30)
[2022-09-26] MEDS: CefTRIAXone/D5W-Rocephin 1gm 50 ML IV SCH (07:44)
[2022-09-26] MEDS: docusate sod 100mg capsule PO SCH ×2 (07:45→19:30)
[2022-09-26] MEDS: amiodarone 200mg tablet PO SCH (07:45)
[2022-09-26] MEDS: atorvastatin 20mg tablet PO SCH (07:45)
[2022-09-26] MEDS: azithromycin/NS 500mg/250ml 250 ML IV SCH (07:45)
[2022-09-26] MEDS: apixaban 5mg tablet PO SCH ×2 (07:45→19:30)
[2022-09-26] MEDS: aspirin 81mg, enteric-coated 1 TAB TABLET.DR PO SCH (07:46)
[2022-09-26] MEDS: K and/or MAG REPLACEMENT MC SCH ×2 (08:00→19:50)
[2022-09-26] MEDS: ipratropium/albuterol 3ml nebule NEB PRN ×3 (08:08→20:26)
[2022-09-26] MEDS: budesonide 0.5mg/2ml UD nebule IH SCH (08:08)
[2022-09-26] MEDS: insulin Lispro (HumaLOG) vial - multi-dose SQ SCH ×3 (09:59→21:33)
[2022-09-26 10:37] VITALS: BP 95/53
[2022-09-26 15:00] VITALS: BP 112/49
[2022-09-26 19:24] VITALS: BP 129/69
[2022-09-26] MEDS: Melatonin 3mg tablet PO SCH (21:28)
[2022-09-26 23:00] VITALS: BP 103/52
--- NOTE | 2022-09-27 01:36 | NUR ---
Pt requested to have BiPAP put on. Respiratory paged. Addendum: 09/27/22 at 0230 by Vania Saldana RN, RN RT arrived to floor and pt had already placed himself on his own home CPAP mask.
[2022-09-27 02:00] VITALS: BP 143/84
[2022-09-27] MEDS: HYDROcodone/acetaminophen 10/325mg tab PO PRN (02:46)
[2022-09-27 06:00] VITALS: BP 159/84
[2022-09-27] MEDS: aspirin 81mg, enteric-coated 1 TAB TABLET.DR PO SCH (07:35)
[2022-09-27] MEDS: apixaban 5mg tablet PO SCH (07:36)
[2022-09-27] MEDS: atorvastatin 20mg tablet PO SCH (07:36)
[2022-09-27] MEDS: docusate sod 100mg capsule PO SCH (07:36)
[2022-09-27] MEDS: amiodarone 200mg tablet PO SCH (07:36)
[2022-09-27] MEDS: methylPREDNISolone sod succ 125mg/2ml vial IV SCH (07:37)
[2022-09-27] MEDS: tizanidine 4mg tablet PO SCH (07:37)
[2022-09-27] MEDS: furosemide 40mg/4ml inj IV SCH (07:37)
[2022-09-27] MEDS: CefTRIAXone/D5W-Rocephin 1gm 50 ML IV SCH (07:38)
[2022-09-27 08:00] LABS: BASOPHILS % (AUTO) 0 % (0-1); EOSINOPHILS % (AUTO) 0 % (0-6); HEMATOCRIT 35.8 % (42.0-52.0); HEMOGLOBIN 11.8 g/dl (14.0-17.9); LYMPHOCYTES # (AUTO) 0.3 X10'3 (1.1-4.8); LYMPHOCYTES % (AUTO) 3.2 % (21-51); MONOCYTES # (AUTO) 0.3 X10'3 (0-0.9); MONOCYTES % (AUTO) 2.5 % (2-12); NEUTROPHILS # (AUTO) 10.1 X10'3 (1.8-7.7); NEUTROPHILS % (AUTO) 94.3 % (42-75); PLATELET COUNT 196 X10'3 (140-440); RED CELL DISTRIBUTION WIDTH 14.7 % (11.5-14.5); WHITE BLOOD COUNT 10.8 X10'3 (4.5-11.0)
[2022-09-27] MEDS: K and/or MAG REPLACEMENT MC SCH (08:00)
[2022-09-27] MEDS ORDERED: diltiazem CD 180mg cap (once-daily) PO SCH (08:00)
[2022-09-27] MEDS: budesonide 0.5mg/2ml UD nebule IH SCH (08:00)
[2022-09-27 08:11] LABS: ALANINE AMINOTRANSFERASE 19 U/L (12-78); ALBUMIN 3.5 G/DL (3.4-5.0); ALKALINE PHOSPHATASE 66 IU/L (46-116); ANION GAP 4 (8-16); ASPARTATE AMINO TRANSFERASE 10 U/L (10-37); BILIRUBIN,TOTAL 0.3 MG/DL (0.1-1.0); BLOOD UREA NITROGEN 43 MG/DL (7-18); BUN/CREATININE RATIO 34.4 (10.0-20.0); CALCIUM 8.8 MG/DL (8.5-10.1); CHLORIDE 94 MMOL/L (99-107); CREATININE 1.25 MG/DL (0.60-1.10); GLUCOSE 249 MG/DL (70-104); MAGNESIUM 2.2 MG/DL (1.5-2.4); POTASSIUM 4.1 MMOL/L (3.5-5.1); SODIUM 135 MMOL/L (135-145); TOTAL PROTEIN 6.9 G/DL (6.4-8.2); eGFR 56 ML/MIN
[2022-09-27] MEDS: insulin Lispro (HumaLOG) vial - multi-dose SQ SCH (09:14)
[2022-09-27] MEDS: azithromycin/NS 500mg/250ml 250 ML IV SCH (09:15)
[2022-09-27 10:00] VITALS: BP 97/61
--- NOTE | 2022-09-27 11:31 | NUR ---
0800 SVN TRIAGED. THERAPIST NOT AVAILABLE
--- NOTE | 2022-09-27 12:00 | NUR ---
Called [facility], spoke with Lilian - prosper zheng. All questions, comments, and concerns answered at this time.
--- NOTE | 2022-09-27 12:05 | NUR ---
pt refused 1200 bg d/t d/c'ing to [facility]
--- NOTE | 2022-09-27 12:13 | NUR ---
Removed f/c - pt tolerated well. Removed PIV x2 - pt tolerated well.
--- NOTE | 2022-09-27 17:48 | NUR ---
Pt picked up by [employer], personal belongings were sent with patient. PIV was removed - pt tolerated well. Tele removed and returned to telegraphic typewriter mechanic. Pt was wheeled out by [employer] personell to their van.
== END 2022-09-27 12:30 | DRG 193 ==
LOC: ER 19:51 → ED HOLD 21:51 → UNDOADMIN 21:51 → EDBEDREQ 09-24 00:31 → ED HOLD 09-24 01:10 → EDBEDREQSVC 09-24 02:09 → EDBEDREQ 09-24 03:03 → ED HOLD 09-24 03:14 → ORTHO 4S 09-24 03:14
PROVIDERS: ADMIT Internal Medicine Critical Care Medicine; ATTEND Internal Medicine
PROC: 5A09357 Assistance with Respiratory Ventilation, Less than 24 Consecutive Hours, Continuous Positive Airway Pressure (ICD-10-PCS; principal; 2022-09-23)
PROC: 5A09357 Assistance with Respiratory Ventilation, Less than 24 Consecutive Hours, Continuous Positive Airway Pressure (ICD-10-PCS; 2022-09-24)
PROC: 5A09357 Assistance with Respiratory Ventilation, Less than 24 Consecutive Hours, Continuous Positive Airway Pressure (ICD-10-PCS; 2022-09-25)
PROC: BW241ZZ Computerized Tomography (CT Scan) of Chest and Abdomen using Low Osmolar Contrast (ICD-10-PCS; 2022-09-25)
PROC: 5A09357 Assistance with Respiratory Ventilation, Less than 24 Consecutive Hours, Continuous Positive Airway Pressure (ICD-10-PCS; 2022-09-27)
DX: J18.9 Pneumonia, unspecified organism (principal); I50.23 Acute on chronic systolic (congestive) heart failure; J96.21 Acute and chronic respiratory failure with hypoxia; R65.11 Systemic inflammatory response syndrome (SIRS) of non-infectious origin with acute organ dysfunction; J96.22 Acute and chronic respiratory failure with hypercapnia; N17.9 Acute kidney failure, unspecified; J44.1 Chronic obstructive pulmonary disease with (acute) exacerbation; I13.0 Hypertensive heart and chronic kidney disease with heart failure and stage 1 through stage 4 chronic kidney disease, or unspecified chronic kidney disease; E87.29 Other acidosis; I48.92 Unspecified atrial flutter; J44.0 Chronic obstructive pulmonary disease with (acute) lower respiratory infection; Z20.822 Contact with and (suspected) exposure to COVID-19; G47.30 Sleep apnea, unspecified; R26.9 Unspecified abnormalities of gait and mobility; E11.22 Type 2 diabetes mellitus with diabetic chronic kidney disease; E11.65 Type 2 diabetes mellitus with hyperglycemia; E78.5 Hyperlipidemia, unspecified; I25.10 Atherosclerotic heart disease of native coronary artery without angina pectoris; I27.81 Cor pulmonale (chronic); I48.0 Paroxysmal atrial fibrillation; I65.29 Occlusion and stenosis of unspecified carotid artery; N18.9 Chronic kidney disease, unspecified; Z79.01 Long term (current) use of anticoagulants; I25.2 Old myocardial infarction; Z79.82 Long term (current) use of aspirin; Z99.81 Dependence on supplemental oxygen; Z79.899 Other long term (current) drug therapy; Z79.4 Long term (current) use of insulin
CPT/HCPCS: 36415; 36600; 71045; 71260; 80053; 80305; 81001; 81003; 82550; 82803; 82948; 83605; 83735; 83880; 84100; 84132; 84145; 84443; 84484; 85018; 85025; 85379; 85610; 85730; 87040; 87081; 87088; 87811; 93005; 94640; 94660; 94760; 96365; 96367; 96375; 97161; 97530; 99285; A4615; A7015; C9113; G0378; J0456; J0692; J0696; J1815; J1940; J2930; J3475; J3490; J7030; Q9967

== ENCOUNTER 2022-11-05 13:34 | Emergency (ER) | payer MEDICARE ==
[~2022-11-05] VITALS: Ht 165.1 cm; Wt 72.0 kg
[~2022-11-05 13:34] MED LIST changes: -ACET-1013 PO; +ALBU18HF2 INH; -ALBU18HF2 PO; +AMIO200T27 PO; -AMIO200T67 PO; -ASPI-101 PO; +ASPI-1071 PO; -ATOR20TA66 PO; +ATOR40TA71 PO; -BISA-172 PO; +CYAN100082 PO; -GLUC1KIT IM; -INSU100C10 SQ; -LEVA0.6319 NEB; -LISI10TA27 PO; +LISI20TA28 PO; -MAGN400O6 PO; +MELA3TAB70 PO; -METF-436 PO; -NA P133E4 RC; -POTA-207 PO; +POTA-366 PO; -TEMA15CA PO; +TEMA15CA5 PO; +TIZA4CAP PO; -TRAZ-251 PO
[2022-11-05 15:18] LABS: BASOPHILS % (AUTO) 0.2 % (0-1); EOSINOPHILS % (AUTO) 0.2 % (0-6); HEMATOCRIT 36.5 % (42.0-52.0); HEMOGLOBIN 11.8 g/dl (14.0-17.9); LYMPHOCYTES # (AUTO) 0.6 X10'3 (1.1-4.8); MEAN CORPUSCULAR HEMOGLOBIN 31.9 PG (27.0-31.0); MEAN CORPUSCULAR HGB CONC 32.4 g/dL (33.0-36.5); MEAN CORPUSCULAR VOLUME 98.4 FL (78-98); MEAN PLATELET VOLUME 8.9 FL (7.4-10.4); MONOCYTES # (AUTO) 0.6 X10'3 (0-0.9); MONOCYTES % (AUTO) 6.6 % (2-12); NEUTROPHILS # (AUTO) 7.6 X10'3 (1.8-7.7); PLATELET COUNT 170 X10'3 (140-440); RED BLOOD COUNT 3.71 X10'6 (4.70-6.10); RED CELL DISTRIBUTION WIDTH 14.7 % (11.5-14.5); WHITE BLOOD COUNT 8.8 X10'3 (4.5-11.0)
[2022-11-05 15:34] LABS: ALANINE AMINOTRANSFERASE 35 U/L (12-78); ALBUMIN 3.4 G/DL (3.4-5.0); ALKALINE PHOSPHATASE 79 IU/L (46-116); ANION GAP 5 (8-16); ASPARTATE AMINO TRANSFERASE 10 U/L (10-37); BILIRUBIN,TOTAL 0.4 MG/DL (0.1-1.0); BLOOD UREA NITROGEN 37 MG/DL (7-18); BUN/CREATININE RATIO 26.6 (10.0-20.0); CALCIUM 8.3 MG/DL (8.5-10.1); CHLORIDE 96 MMOL/L (99-107); CREATININE 1.39 MG/DL (0.60-1.10); GLUCOSE 388 MG/DL (70-104); POTASSIUM 4.9 MMOL/L (3.5-5.1); SODIUM 137 MMOL/L (135-145); TOTAL CARBON DIOXIDE 35.9 MMOL/L (24-32); TOTAL PROTEIN 6.8 G/DL (6.4-8.2); eGFR 50 ML/MIN
--- NOTE | 2022-11-05 16:32 | NUR ---
VISITOR AT BEDSIDE - PT HAS NO COMPLAINTS
[2022-11-05] MEDS ORDERED: normal saline 1000ml 1,000 ML IV ONE ×2 (16:40)
[2022-11-05] MEDS ORDERED: ALBU1.256 NEB (17:42)
[2022-11-05] MEDS ORDERED: HUM7525 SQ (17:42)
[2022-11-05] MEDS ORDERED: albuterol 2.5 MG/3 ML nebule NEB ONE (18:10)
[2022-11-05 18:33] LABS: ALANINE AMINOTRANSFERASE 38 U/L (12-78); ALBUMIN 3.6 G/DL (3.4-5.0); ALKALINE PHOSPHATASE 84 IU/L (46-116); ANION GAP 9 (8-16); ASPARTATE AMINO TRANSFERASE 11 U/L (10-37); BILIRUBIN,TOTAL 0.4 MG/DL (0.1-1.0); BLOOD UREA NITROGEN 32 MG/DL (7-18); BUN/CREATININE RATIO 27.1 (10.0-20.0); CALCIUM 8.3 MG/DL (8.5-10.1); CHLORIDE 98 MMOL/L (99-107); CREATININE 1.18 MG/DL (0.60-1.10); GLUCOSE 249 MG/DL (70-104); POTASSIUM 4.3 MMOL/L (3.5-5.1); SODIUM 140 MMOL/L (135-145); TOTAL CARBON DIOXIDE 33.2 MMOL/L (24-32); TOTAL PROTEIN 7.1 G/DL (6.4-8.2); eGFR 60 ML/MIN
--- NOTE | 2022-11-05 18:37 | NUR ---
RT to pt bedside at this time for ordered breathing treatment
--- NOTE | 2022-11-05 19:26 | NUR ---
UPON PERFORMING ORTHOSTATIC VITAL SIGNS, PT REPORTS FEELING DIZZY WHEN SITTING AND STATES VISION FEELS BLURRY WHEN STANDING; SON AT BEDSIDE STATES PT SPEECH SOUNDS SLURRED FROM BASELINE; GANESH HEWITT NOTIFIED AND REPORTS TO PT BEDSIDE AT THIS TIME FOR PT EVALUATION
[2022-11-05 20:31] VITALS: BP 145/73
== END 2022-11-05 20:32 | disposition home or self-care (01) ==
LOC: ER 13:34
DX: I48.92 Unspecified atrial flutter (principal); E86.0 Dehydration; J44.9 Chronic obstructive pulmonary disease, unspecified; E11.9 Type 2 diabetes mellitus without complications; Z88.8 Allergy status to other drugs, medicaments and biological substances; Z79.899 Other long term (current) drug therapy
CPT/HCPCS: 36415; 71045; 80053; 83880; 84484; 85025; 93005; 94640; 96360; 96361; 99285; J7030; 94760

== ENCOUNTER 2023-03-25 13:16 | Inpatient (IN) | payer MEDICARE ==
[~2023-03-25] VITALS: Ht 154.9 cm; Wt 75.0 kg
[~2023-03-25 13:16] MED LIST changes: +ALBU1.256 NEB; -APIX5TAB3 PO; +HUM7525 SQ
[2023-03-25] MEDS ORDERED: normal saline 1000ML IV soln IVB ONE (14:55)
[2023-03-25 15:01] LABS: BILIRUBIN,URINE NEGATIVE (Neg); CLARITY,URINE CLEAR (Clear); COLOR,URINE YELLOW (Yellow); GLUCOSE, URINE NEGATIVE (Neg); KETONES,URINE NEGATIVE (Neg); LEUKOCYTE ESTERASE ,URINE NEGATIVE (Neg); NITRITES, URINE NEGATIVE (Neg); OCCULT BLOOD,URINE NEGATIVE (Neg); PROTEIN,URINE NEGATIVE (Neg); UROBILINOGEN,URINE 0.2 E.U/dL (0.2-1.0)
[2023-03-25 15:08] LABS: UA COLLECTION TYPE NON-SPECIFIED
[2023-03-25 15:31] LABS: BASOPHILS # (AUTO) 0.1 X10'3 (0-0.2); BASOPHILS % (AUTO) 0.9 % (0-1); EOSINOPHILS # (AUTO) 0.1 X10'3 (0-0.9); EOSINOPHILS % (AUTO) 1.7 % (0-6); HEMATOCRIT 34.1 % (42.0-52.0); LYMPHOCYTES # (AUTO) 1.2 X10'3 (1.1-4.8); LYMPHOCYTES % (AUTO) 13.5 % (21-51); MEAN CORPUSCULAR HEMOGLOBIN 31.5 PG (27.0-31.0); MEAN CORPUSCULAR HGB CONC 32.3 g/dL (33.0-36.5); MEAN CORPUSCULAR VOLUME 97.5 FL (78-98); MEAN PLATELET VOLUME 9.1 FL (7.4-10.4); MONOCYTES # (AUTO) 0.7 X10'3 (0-0.9); MONOCYTES % (AUTO) 7.7 % (2-12); NEUTROPHILS # (AUTO) 6.6 X10'3 (1.8-7.7); NEUTROPHILS % (AUTO) 76.2 % (42-75); PLATELET COUNT 194 X10'3 (140-440); RED CELL DISTRIBUTION WIDTH 14.1 % (11.5-14.5); WHITE BLOOD COUNT 8.7 X10'3 (4.5-11.0)
--- NOTE | 2023-03-25 15:39 | NUR ---
PT TAKEN TO CT.
[2023-03-25 15:49] LABS: ALANINE AMINOTRANSFERASE 23 U/L (12-78); ALBUMIN 3.1 G/DL (3.4-5.0); ALBUMIN/GLOBULIN RATIO 0.8 (1.1-1.5); ALKALINE PHOSPHATASE 74 IU/L (46-116); ANION GAP 3 (8-16); ASPARTATE AMINO TRANSFERASE 16 U/L (10-37); BILIRUBIN,TOTAL 0.5 MG/DL (0.1-1.0); BLOOD UREA NITROGEN 31 MG/DL (7-18); BUN/CREATININE RATIO 14.5 (10.0-20.0); CALCIUM 9.4 MG/DL (8.5-10.1); CHLORIDE 100 MMOL/L (99-107); CREATININE 2.14 MG/DL (0.60-1.10); ETHANOL < 10 MG/DL (<10); GLUCOSE 162 MG/DL (70-104); LIPASE < 50 U/L (73-393); POTASSIUM 5.1 MMOL/L (3.5-5.1); PRO BRAIN NATRIURETIC PEPTIDE 871 PG/ML (0-450); SODIUM 137 MMOL/L (135-145); TOTAL CARBON DIOXIDE 33.6 MMOL/L (24-32); TOTAL PROTEIN 7.1 G/DL (6.4-8.2); eCRCL 22 ML/MIN; eGFR 30 ML/MIN
--- NOTE | 2023-03-25 16:22 | NUR ---
RN SPOKE WITH PT SON AND OBTAINED PT HX.
[2023-03-25] MEDS ORDERED: methylPREDNISolone sod succ 125mg/2ml vial IV ONE (17:30)
[2023-03-25] MEDS ORDERED: LORazepam 2 mg/ml vial IV ONE (17:30)
[2023-03-25 17:50] LABS: ABG BASE EXCESS -2.6 mmol/L (-2.0-2.0); ABG HCO3 24.5 mmol/L (22.0-26.0); ABG PCO2 (T) 52.2 mmHg (35.0-48.0); ABG PH (T) 7.288 (7.340-7.440); ABG PO2 (T) 126.2 mmHg (75.0-100.0); ALLEN'S TEST POSITIVE; FCOHb 0.3 % (0.0-3.9); FLOW 5 L/min; FMetHb 0.1 % (0.0-1.5); FO2Hb 97.6 % (94-97); MODE NC; PATIENT TEMPERATURE 36.7; TOTAL HEMOGLOBIN 11.4 G/dl (14.0-17.9)
[2023-03-25] MEDS ORDERED: diltiazem-NS 100mg/100ml 100 ML IV PRN (17:55)
[2023-03-25] MEDS ORDERED: diltiazem 5mg/ml 5ml inj. IV ONE (17:55)
[2023-03-25] MEDS ORDERED: albuterol 2.5 MG/3 ML nebule CONTNEB PRN (17:55)
--- NOTE | 2023-03-25 18:20 | NUR ---
REPEAT EKG COMPLETED. SBAR REPORT GIVEN TO ALEXUS PERALTA. ALEXUS PERALTA WILL INQ WITH MD IF CARDIZEM STILL NECESSARY AND WILL ADMIN.
--- NOTE | 2023-03-25 18:22 | NUR ---
RN ORD REPEAT EKG D/T PT HR 82 AND CARDIZEM ORD.
[2023-03-25] MEDS ORDERED: magnesium 2GM in 50ml NS 50 ML IV PRN ×2 (18:40→19:10)
[2023-03-25] MEDS ORDERED: mag hydrox/Alum hydrox/simeth 30ml oral suspension PO PRN ×2 (18:40→19:10)
[2023-03-25] MEDS ORDERED: magnesium Cl slow-release 64mg tablet PO PRN ×2 (18:40→19:10)
[2023-03-25] MEDS ORDERED: normal saline 1000ml 1,000 ML IV SCH ×2 (18:40→19:10)
[2023-03-25] MEDS ORDERED: CefTRIAXone/D5W-Rocephin 1gm 50 ML IV SCH (18:40)
[2023-03-25] MEDS ORDERED: magnesium 4gm in 100ml NS 100 ML IV PRN ×2 (18:40→19:10)
[2023-03-25] MEDS ORDERED: potassium Cl 40MEQ/1/2NS 520ml 520 ML IV PRN ×2 (18:40→19:10)
[2023-03-25] MEDS ORDERED: diphenhydrAMINE 25mg capsule PO PRN ×2 (18:40→19:10)
[2023-03-25] MEDS ORDERED: potassium Cl 20 mEq SR tablet PO PRN ×4 (18:40→19:10)
[2023-03-25] MEDS ORDERED: ipratropium/albuterol 3ml nebule NEB PRN ×2 (18:40→19:05)
[2023-03-25] MEDS ORDERED: bisacodyl 10mg suppository rectal RC PRN ×2 (18:40→19:10)
[2023-03-25] MEDS ORDERED: acetaminophen 650mg rectal suppository RC PRN ×2 (18:40→19:10)
[2023-03-25] MEDS ORDERED: azithromycin/NS 500mg/250ml 250 ML IV SCH (18:40)
[2023-03-25] MEDS ORDERED: MESSAGE TO PHARMACY PO ONE ×2 (18:40→19:10)
[2023-03-25] MEDS ORDERED: HYDROcodone/acetaminophen 5mg/325mg tablet PO PRN ×2 (18:40→19:10)
[2023-03-25] MEDS ORDERED: morphine 2 MG/ML inj. syringe IV PRN ×4 (18:40→19:10)
[2023-03-25] MEDS ORDERED: dextrose 50%-water 50ml dispensing syringe IV PRN ×4 (18:40→19:10)
[2023-03-25] MEDS ORDERED: acetaminophen 325mg tablet PO PRN ×4 (18:40→19:10)
[2023-03-25] MEDS ORDERED: insulin Lispro (HumaLOG) vial - multi-dose SQ SCH (18:40)
[2023-03-25] MEDS ORDERED: DEXTROSE 15 GM of carb/4 tabs (each vial/BOTTLE has 4 tablets) PO PRN ×4 (18:40→19:10)
[2023-03-25] MEDS ORDERED: HYDROcodone/acetaminophen 10/325mg tab PO PRN (18:40)
[2023-03-25] MEDS ORDERED: glucagon, human recombinant 1mg kit SUBCUT PRN ×2 (18:40→19:10)
[2023-03-25] MEDS ORDERED: ondansetron/PF 4mg/2ml inj IV PRN ×2 (18:40→19:10)
[2023-03-25] MEDS ORDERED: PERFLUTREN PROTEIN-A MICROSPHR (Optison) 0.22 MG/ML 3ML VIAL IV ONE ×2 (18:40→19:10)
[2023-03-25] MEDS ORDERED: magnesium hydroxide 30ml (MOM) UD suspension PO PRN ×2 (18:40→19:10)
[2023-03-25] MEDS ORDERED: ipratropium/albuterol 3ml nebule NEB SCH (19:00)
[2023-03-25] MEDS ORDERED: haloperidol lactate 5mg/ml inj IM ONE (19:05)
[2023-03-25] MEDS ORDERED: ondansetron 4mg rapidly disintigrating tab PO PRN (19:10)
[2023-03-25] MEDS: azithromycin/NS 500mg/250ml 250 ML IV SCH (19:20)
[2023-03-25] MEDS: CefTRIAXone/D5W-Rocephin 1gm 50 ML IV SCH (19:20)
[2023-03-25 19:43] VITALS: PULSE 104; RESP 18; O2SAT 97
[2023-03-25 19:43] LABS: HEMOGLOBIN A1C 10.7 % (4.5-6.2)
[2023-03-25] MEDS: docusate sod 100mg capsule PO SCH (20:00)
[2023-03-25] MEDS: K and/or MAG REPLACEMENT MC SCH (20:00)
[2023-03-25] MEDS ORDERED: docusate sod 100mg capsule PO SCH (20:00)
[2023-03-25] MEDS ORDERED: K and/or MAG REPLACEMENT MC SCH (20:00)
[2023-03-25] MEDS ORDERED: methylPREDNISolone sod succ 125mg/2ml vial IV SCH (20:00)
[2023-03-25] MEDS: methylPREDNISolone sod succ 125mg/2ml vial IV SCH (20:32)
[2023-03-25] MEDS: heparin, porcine 5000 units/ml vial SQ SCH (20:33)
[2023-03-25 20:39] VITALS: PULSE 71; RESP 16; O2SAT 99
--- NOTE | 2023-03-25 20:41 | NUR ---
Post cont neb tx patient not put on bipap denies any shortness of breath. 98% on nc 3l/m
[2023-03-25] MEDS ORDERED: insulin glargine (Lantus) pen - multi-dose SQ SCH (21:00)
[2023-03-25] MEDS: ipratropium/albuterol 3ml nebule NEB SCH (22:54)
[2023-03-25 23:03] VITALS: PULSE 97; RESP 18; O2SAT 97
[2023-03-25 23:11] VITALS: PULSE 77; RESP 16
[2023-03-25] MEDS: insulin glargine (Lantus) pen - multi-dose SQ SCH (23:48)
[2023-03-26] VITALS (15 sets, daily range): BP systolic 94–138; BP diastolic 50–79; PULSE 51–124; RESP 15–28; TEMP 97.2–98; O2SAT 92–100
--- NOTE | 2023-03-26 01:26 | NUR ---
PATIENT PLACED ON A HOSPITAL BED
--- NOTE | 2023-03-26 03:41 | NUR ---
1830 PT CONFUSED AND UNCOOPERATIVE. WILL NOT STAY IN BED, PULLING ON ALL LINES AND IV, AND SHOWING SOME IRRITATED GESTURES, SWINGING ARMS AROUND TOWARD STAFF WHILE TRYING TO ASSIST BACK INTO BED, RE-ORIENT, AND EXPLAIN PROCESSES, ERMD AWARE 190 SECURITY AT BS FOR ASSIST PLACING BILAT WRIST SOFT RESTRAINTS WITH ALL CMS CHECKS PERFORMED
[2023-03-26] MEDS: ipratropium/albuterol 3ml nebule NEB SCH ×6 (03:47→23:33)
--- NOTE | 2023-03-26 03:48 | NUR ---
6654 RESTRAINTS REMOVED. PT COOPERATIVE AND RESPONDS POSITIVELY TOWARD STAFF, AND APOLOGIZING FOR PREVIOUS ACTIONS, STATING HE WAS JUST SO CONFUSED AND COULDN'T UNDERSTAND WHAT WAS GOING ON. SKIN INTACT AT WRISTS
[2023-03-26] MEDS: methylPREDNISolone sod succ 125mg/2ml vial IV SCH ×4 (04:50→20:17)
--- NOTE | 2023-03-26 05:14 | NUR ---
0020GAVE PT WARM BLANKETS AND REPOSITIONED FOR COMFORT
[2023-03-26 06:02] LABS: BILIRUBIN,URINE NEGATIVE (Neg); CLARITY,URINE CLEAR (Clear); COLOR,URINE YELLOW (Yellow); GLUCOSE, URINE 100 mg/dl (Neg); KETONES,URINE 15 mg/dl (Neg); LEUKOCYTE ESTERASE ,URINE NEGATIVE (Neg); NITRITES, URINE NEGATIVE (Neg); OCCULT BLOOD,URINE TRACE-INTACT (Neg); PH,URINE 5.5 (4.8-8.0); PROTEIN,URINE NEGATIVE (Neg); UROBILINOGEN,URINE 0.2 E.U/dL (0.2-1.0)
[2023-03-26 06:08] LABS: UA COLLECTION TYPE VOIDED
[2023-03-26 06:12] LABS: BACTERIA,URINE NONE SEEN /HPF (Neg); RBC,URINE 0-2 /HPF (0-2); SQUAMOUS EPITHELIAL CELL,UR FEW /LPF (FEW); WBC,URINE NONE SEEN /HPF (0-4)
[2023-03-26 06:13] LABS: MUCUS STRANDS NONE SEEN /LPF (Neg)
[2023-03-26 06:35] LABS: URINE AMPHETAMINE SCREEN NEGATIVE (Neg); URINE BARBITUATE SCREEN NEGATIVE (Neg); URINE BENZODIAZEPINES SCREEN NEGATIVE (Neg); URINE CANNABINOID SCREEN POSITIVE (Neg); URINE COCAINE SCREEN NEGATIVE (Neg); URINE METHADONE SCREEN NEGATIVE (Neg); URINE OPIATE SCREEN POSITIVE (Neg); URINE PHENCYCLIDINE SCREEN NEGATIVE (Neg)
--- NOTE | 2023-03-26 07:03 | NUR ---
INTRODUCED TO PT. PLACED PT ON PULSE OX.
--- NOTE | 2023-03-26 07:57 | NUR ---
DM Consult: Pt hx DM A1C 10.7% admit DX AMS and end stage COPD recently taken off hospice per EMR. DM ed not appropriate at this time given hx and DX; will monitor for appropriate nutrition intervention needs this admit. Addendum: 03/26/23 at [address] Amended: Links added.
[2023-03-26] MEDS: K and/or MAG REPLACEMENT MC SCH ×2 (08:00→20:00)
--- NOTE | 2023-03-26 08:34 | NUR ---
MONITORING CARDIZEM GTT FOR BLOCKER HEATED METAL FORMS - PT IN FIB/FLUTTER WITH HR 50-80S. REQUESTED TO DC GTT AND START PO MED @ 0730 WITH CALL TO RESIDENT DR MORLEY. AWAITING NEW ORDERS AFTER REVIEWS CHART PER MILLI
[2023-03-26] MEDS: diltiazem 30mg tablet PO SCH (09:29)
[2023-03-26] MEDS: heparin, porcine 5000 units/ml vial SQ SCH ×2 (09:30→20:18)
[2023-03-26] MEDS: docusate sod 100mg capsule PO SCH ×2 (09:30→20:18)
[2023-03-26 09:51] LABS: BASOPHILS % (AUTO) 0.1 % (0-1); EOSINOPHILS % (AUTO) 0.1 % (0-6); HEMATOCRIT 33.2 % (42.0-52.0); HEMOGLOBIN 10.7 g/dl (14.0-17.9); LYMPHOCYTES # (AUTO) 0.4 X10'3 (1.1-4.8); LYMPHOCYTES % (AUTO) 7.3 % (21-51); MEAN CORPUSCULAR HEMOGLOBIN 31.4 PG (27.0-31.0); MEAN CORPUSCULAR HGB CONC 32.1 g/dL (33.0-36.5); MEAN PLATELET VOLUME 9.5 FL (7.4-10.4); MONOCYTES % (AUTO) 0.6 % (2-12); NEUTROPHILS # (AUTO) 4.7 X10'3 (1.8-7.7); NEUTROPHILS % (AUTO) 91.9 % (42-75); PLATELET COUNT 203 X10'3 (140-440); RED BLOOD COUNT 3.39 X10'6 (4.70-6.10); RED CELL DISTRIBUTION WIDTH 14.2 % (11.5-14.5); WHITE BLOOD COUNT 5.1 X10'3 (4.5-11.0)
[2023-03-26 10:05] LABS: ALANINE AMINOTRANSFERASE 26 U/L (12-78); ALBUMIN/GLOBULIN RATIO 0.7 (1.1-1.5); ALKALINE PHOSPHATASE 71 IU/L (46-116); ANION GAP 6 (8-16); ASPARTATE AMINO TRANSFERASE 17 U/L (10-37); BILIRUBIN,TOTAL 0.3 MG/DL (0.1-1.0); BLOOD UREA NITROGEN 33 MG/DL (7-18); BUN/CREATININE RATIO 18.3 (10.0-20.0); CALCIUM 9.2 MG/DL (8.5-10.1); CHLORIDE 101 MMOL/L (99-107); GLUCOSE 332 MG/DL (70-104); HDL CHOLESTEROL 87 MG/DL (35-60); LDL CHOLESTEROL 59 MG/DL (50-100); MAGNESIUM 2.3 MG/DL (1.5-2.4); PHOSPHORUS 4.6 MG/DL (2.3-4.5); SODIUM 137 MMOL/L (135-145); TOTAL CARBON DIOXIDE 30.2 MMOL/L (24-32); TOTAL PROTEIN 7.2 G/DL (6.4-8.2); TRIGLYCERIDES 73 MG/DL (20-135); eCRCL 26 ML/MIN; eGFR 37 ML/MIN
[2023-03-26 12:13] LABS: CHOL/HDL RATIO 1.9 (0.00-4.99); CHOLESTEROL 169 MG/DL (0-200)
[2023-03-26] MEDS ORDERED: LORazepam 2 mg/ml vial IV PRN (12:15)
[2023-03-26 13:01] LABS: ABG BASE EXCESS -2.5 mmol/L (-2.0-2.0); ABG HCO3 22.8 mmol/L (22.0-26.0); ABG OXYGEN SATURATION 94.8 % (94-97); ABG PCO2 (T) 41.4 mmHg (35.0-48.0); ABG PH (T) 7.359 (7.340-7.440); ABG PO2 (T) 68.7 mmHg (75.0-100.0); ALLEN'S TEST POSITIVE; FCOHb 0.2 % (0.0-3.9); FHHb 5.2 % (0.0-5.0); FLOW 1 L/min; FMetHb 0.3 % (0.0-1.5); FO2Hb 94.3 % (94-97)
[2023-03-26] MEDS: insulin Lispro (HumaLOG) vial - multi-dose SQ SCH ×2 (13:45→19:19)
--- NOTE | 2023-03-26 14:05 | NUR ---
Paged PICC RN again
[2023-03-26] MEDS ORDERED: MORP100S7 PO (15:01)
[2023-03-26] MEDS ORDERED: QUET25TA36 PO (15:03)
[2023-03-26] MEDS ORDERED: IPRA3AMP31 NEB (15:04)
[2023-03-26] MEDS ORDERED: LORA-268 PO (15:05)
[2023-03-26] MEDS ORDERED: PRED10TA PO (15:06)
[2023-03-26] MEDS ORDERED: DILT180C76 PO (15:06)
[2023-03-26] MEDS ORDERED: CALC500T63 PO (15:10)
[2023-03-26] MEDS ORDERED: LACT1CAP65 PO (15:11)
[2023-03-26] MEDS ORDERED: ASCO500C17 PO (15:11)
[2023-03-26] MEDS ORDERED: LORazepam 0.5 MG tablet PO PRN (17:50)
--- NOTE | 2023-03-26 19:05 | NUR ---
Gave report to Jami PERALTA
[2023-03-26] MEDS: CefTRIAXone/D5W-Rocephin 1gm 50 ML IV SCH (19:21)
[2023-03-26] MEDS: TIZANIDINE HCL 4 MG PO SCH (20:00)
[2023-03-26] MEDS: azithromycin/NS 500mg/250ml 250 ML IV SCH (20:17)
[2023-03-26] MEDS: aspirin 81mg, enteric-coated 1 TAB TABLET.DR PO SCH (20:18)
[2023-03-26] MEDS: atorvastatin 20mg tablet PO SCH (20:18)
[2023-03-26] MEDS: temazepam 15mg capsule PO SCH (20:53)
[2023-03-26] MEDS: QUEtiapine 25mg tablet PO SCH (20:54)
[2023-03-26] MEDS: insulin glargine (Lantus) pen - multi-dose SQ SCH (21:05)
[2023-03-27] VITALS (16 sets, daily range): BP systolic 87–132; BP diastolic 47–73; PULSE 59–129; RESP 14–22; TEMP 97.3–98.2; O2SAT 94–98
[2023-03-27] MEDS: methylPREDNISolone sod succ 125mg/2ml vial IV SCH ×2 (01:23→07:35)
[2023-03-27] MEDS: ipratropium/albuterol 3ml nebule NEB SCH ×4 (03:09→20:37)
--- NOTE | 2023-03-27 06:24 | NUR ---
Patient report given, questions answered & plan of care reviewed with FABIAN Martinez
[2023-03-27 06:37] LABS: BASOPHILS % (AUTO) 0.1 % (0-1); EOSINOPHILS % (AUTO) 0 % (0-6); HEMATOCRIT 29.3 % (42.0-52.0); HEMOGLOBIN 9.4 g/dl (14.0-17.9); LYMPHOCYTES # (AUTO) 0.4 X10'3 (1.1-4.8); LYMPHOCYTES % (AUTO) 3.3 % (21-51); MEAN CORPUSCULAR HEMOGLOBIN 30.7 PG (27.0-31.0); MEAN CORPUSCULAR HGB CONC 31.9 g/dL (33.0-36.5); MEAN CORPUSCULAR VOLUME 96.1 FL (78-98); MEAN PLATELET VOLUME 9.3 FL (7.4-10.4); MONOCYTES # (AUTO) 0.2 X10'3 (0-0.9); MONOCYTES % (AUTO) 1.5 % (2-12); NEUTROPHILS # (AUTO) 10.8 X10'3 (1.8-7.7); NEUTROPHILS % (AUTO) 95.1 % (42-75); PLATELET COUNT 206 X10'3 (140-440); RED BLOOD COUNT 3.05 X10'6 (4.70-6.10); RED CELL DISTRIBUTION WIDTH 13.8 % (11.5-14.5); WHITE BLOOD COUNT 11.3 X10'3 (4.5-11.0)
[2023-03-27 07:16] LABS: ALANINE AMINOTRANSFERASE 23 U/L (12-78); ALBUMIN 2.9 G/DL (3.4-5.0); ALBUMIN/GLOBULIN RATIO 0.8 (1.1-1.5); ALKALINE PHOSPHATASE 61 IU/L (46-116); ANION GAP 8 (8-16); ASPARTATE AMINO TRANSFERASE 22 U/L (10-37); BILIRUBIN,TOTAL 0.2 MG/DL (0.1-1.0); BLOOD UREA NITROGEN 34 MG/DL (7-18); CALCIUM 9.1 MG/DL (8.5-10.1); CHLORIDE 101 MMOL/L (99-107); CREATININE 1.62 MG/DL (0.60-1.10); GLUCOSE 273 MG/DL (70-104); MAGNESIUM 2.3 MG/DL (1.5-2.4); PHOSPHORUS 4.1 MG/DL (2.3-4.5); POTASSIUM 4.5 MMOL/L (3.5-5.1); SODIUM 135 MMOL/L (135-145); TOTAL CARBON DIOXIDE 26.1 MMOL/L (24-32); TOTAL PROTEIN 6.5 G/DL (6.4-8.2); eCRCL 29 ML/MIN; eGFR 42 ML/MIN
[2023-03-27] MEDS: amiodarone 200mg tablet PO SCH (07:35)
[2023-03-27] MEDS: docusate sod 100mg capsule PO SCH ×2 (07:35→21:34)
[2023-03-27] MEDS: heparin, porcine 5000 units/ml vial SQ SCH ×2 (07:35→21:33)
[2023-03-27] MEDS: K and/or MAG REPLACEMENT MC SCH ×2 (07:35→20:00)
[2023-03-27] MEDS: aspirin 81mg, enteric-coated 1 TAB TABLET.DR PO SCH ×2 (07:35→21:33)
[2023-03-27] MEDS: diltiazem 30mg tablet PO SCH (07:35)
[2023-03-27] MEDS: TIZANIDINE HCL 4 MG PO SCH ×2 (07:36→20:00)
--- NOTE | 2023-03-27 08:28 | NUR ---
Resident called and made aware pt. sustaining HR in 130s. Occasionally drops down to 90s. About 55 min since AM HR meds given. Resident states she will wait about another 30 minutes and then adjust Cardizem if needed.
[2023-03-27] MEDS: insulin Lispro (HumaLOG) vial - multi-dose SQ SCH ×3 (09:23→19:20)
--- NOTE | 2023-03-27 12:53 | NUR ---
Resident called. Made aware of critical results +BC anaerobic bottle, gram + rods. Resident states wait for final results as this may be a contaminant.
[2023-03-27] MEDS: CefTRIAXone/D5W-Rocephin 1gm 50 ML IV SCH (19:22)
[2023-03-27] MEDS: methylPREDNISolone sod succ/PF 40mg inj. IV SCH (20:00)
[2023-03-27] MEDS: azithromycin/NS 500mg/250ml 250 ML IV SCH (20:22)
[2023-03-27] MEDS: temazepam 15mg capsule PO SCH (21:33)
[2023-03-27] MEDS: atorvastatin 20mg tablet PO SCH (21:34)
[2023-03-27] MEDS: diltiazem SR 60mg capsule (twice daily) PO SCH (21:34)
[2023-03-27] MEDS: QUEtiapine 25mg tablet PO SCH (21:34)
[2023-03-27] MEDS: insulin glargine (Lantus) pen - multi-dose SQ SCH (21:57)
[2023-03-28] VITALS (11 sets, daily range): BP systolic 104–120; BP diastolic 53–64; PULSE 62–69; RESP 14–22; TEMP 97.2–98.7; O2SAT 93–97
[2023-03-28] MEDS: ipratropium/albuterol 3ml nebule NEB SCH ×3 (03:23→14:34)
--- NOTE | 2023-03-28 06:40 | NUR ---
Patient in room PCU 3028. I have received report from FABIAN Farrell and had the opportunity to ask questions and assume patient care.
--- NOTE | 2023-03-28 06:47 | NUR ---
Patient report given, questions answered & plan of care reviewed with FABIAN Norton
[2023-03-28 06:51] LABS: BASOPHILS % (AUTO) 0 % (0-1); EOSINOPHILS % (AUTO) 0 % (0-6); HEMATOCRIT 29.2 % (42.0-52.0); HEMOGLOBIN 9.6 g/dl (14.0-17.9); LYMPHOCYTES # (AUTO) 0.3 X10'3 (1.1-4.8); LYMPHOCYTES % (AUTO) 2.2 % (21-51); MEAN CORPUSCULAR HEMOGLOBIN 31.4 PG (27.0-31.0); MEAN CORPUSCULAR HGB CONC 32.7 g/dL (33.0-36.5); MEAN PLATELET VOLUME 9.4 FL (7.4-10.4); MONOCYTES # (AUTO) 0.2 X10'3 (0-0.9); NEUTROPHILS # (AUTO) 10.8 X10'3 (1.8-7.7); NEUTROPHILS % (AUTO) 95.8 % (42-75); PLATELET COUNT 218 X10'3 (140-440); RED BLOOD COUNT 3.04 X10'6 (4.70-6.10); RED CELL DISTRIBUTION WIDTH 14.1 % (11.5-14.5); WHITE BLOOD COUNT 11.3 X10'3 (4.5-11.0)
[2023-03-28 07:32] LABS: ALANINE AMINOTRANSFERASE 25 U/L (12-78); ALBUMIN 2.9 G/DL (3.4-5.0); ALBUMIN/GLOBULIN RATIO 0.9 (1.1-1.5); ALKALINE PHOSPHATASE 61 IU/L (46-116); ANION GAP 4 (8-16); ASPARTATE AMINO TRANSFERASE 20 U/L (10-37); BILIRUBIN,TOTAL 0.2 MG/DL (0.1-1.0); BLOOD UREA NITROGEN 38 MG/DL (7-18); BUN/CREATININE RATIO 24.8 (10.0-20.0); CALCIUM 9.1 MG/DL (8.5-10.1); CHLORIDE 103 MMOL/L (99-107); CREATININE 1.53 MG/DL (0.60-1.10); GLUCOSE 210 MG/DL (70-104); MAGNESIUM 2.5 MG/DL (1.5-2.4); PHOSPHORUS 3.9 MG/DL (2.3-4.5); POTASSIUM 4.4 MMOL/L (3.5-5.1); SODIUM 138 MMOL/L (135-145); TOTAL CARBON DIOXIDE 31.1 MMOL/L (24-32); TOTAL PROTEIN 6.2 G/DL (6.4-8.2); eCRCL 31 ML/MIN; eGFR 45 ML/MIN
[2023-03-28] MEDS: K and/or MAG REPLACEMENT MC SCH (08:00)
[2023-03-28] MEDS: aspirin 81mg, enteric-coated 1 TAB TABLET.DR PO SCH (09:51)
[2023-03-28] MEDS: diltiazem SR 60mg capsule (twice daily) PO SCH (09:51)
[2023-03-28] MEDS: amiodarone 200mg tablet PO SCH (09:51)
[2023-03-28] MEDS: methylPREDNISolone sod succ/PF 40mg inj. IV SCH (09:51)
[2023-03-28] MEDS: heparin, porcine 5000 units/ml vial SQ SCH (09:52)
[2023-03-28] MEDS ORDERED: docusate sod 100mg capsule PO PRN (09:55)
[2023-03-28] MEDS: insulin Lispro (HumaLOG) vial - multi-dose SQ SCH (09:55)
[2023-03-28] MEDS ORDERED: acetaminophen 325mg tablet PO PRN (14:15)
[2023-03-28] MEDS ORDERED: morphine 10mg/0.5ml (conc. morphine) oral syringe PO PRN (14:15)
[2023-03-28] MEDS ORDERED: temazepam 15mg capsule PO PRN (14:45)
[2023-03-28] MEDS ORDERED: QUEtiapine 25mg tablet PO PRN (14:45)
[2023-03-28] MEDS: morphine 10mg/ml inj. IV PRN ×5 (14:54→23:37)
[2023-03-28] MEDS: LORazepam 2 mg/ml vial IV PRN (16:03)
[2023-03-28] MEDS: HYDROcodone/acetaminophen 10/325mg tab PO PRN ×2 (16:07→19:03)
--- NOTE | 2023-03-28 19:10 | NUR ---
Problems reprioritized. Patient report given, questions answered & plan of care reviewed with FABIAN Farrell.
[2023-03-29] MEDS: morphine 10mg/ml inj. IV PRN ×5 (00:34→07:14)
--- NOTE | 2023-03-29 02:28 | NUR ---
Received patient in bed with son at bedside, patient is alert and oriented to self, place and situation. Patient complaining of generalized pain and difficulty with breathing. Medicated frequently for comfort. Patient was requesting more frequent morphine due to anxiety of air hunger, called Dr. Becker and got order for increased and more frequent morphine admin. order. Frequent rounds to keep patient comfortable. Son left to go home around 2200.
[2023-03-29 05:26] VITALS: RESP 28
--- NOTE | 2023-03-29 06:20 | NUR ---
Patient in room PCU 3022. I have received report from FABIAN Farrell and had the opportunity to ask questions and assume patient care.
--- NOTE | 2023-03-29 06:24 | NUR ---
Patient report given, questions answered & plan of care reviewed with FABIAN Norton
[2023-03-29] MEDS: LORazepam 2 mg/ml vial IV PRN (07:14)
== END 2023-03-29 09:17 | DRG 193 ==
LOC: ER 13:16 → ED HOLD 18:46 → UNDOADMIN 19:12 → PCU 3S 03-26 07:33 → ED HOLD 03-26 07:33 → PCU 3S 03-28 16:00
PROVIDERS: ADMIT Family Medicine; ATTEND Family Medicine
PROC: CB121ZZ Planar Nuclear Medicine Imaging of Lungs and Bronchi using Technetium 99m (Tc-99m) (ICD-10-PCS; principal; 2023-03-26)
DX: J18.9 Pneumonia, unspecified organism (principal); G93.41 Metabolic encephalopathy; J96.21 Acute and chronic respiratory failure with hypoxia; J44.1 Chronic obstructive pulmonary disease with (acute) exacerbation; E87.29 Other acidosis; N17.9 Acute kidney failure, unspecified; I48.92 Unspecified atrial flutter; I13.0 Hypertensive heart and chronic kidney disease with heart failure and stage 1 through stage 4 chronic kidney disease, or unspecified chronic kidney disease; J44.0 Chronic obstructive pulmonary disease with (acute) lower respiratory infection; I50.32 Chronic diastolic (congestive) heart failure; Z66 Do not resuscitate; E86.0 Dehydration; G89.29 Other chronic pain; M19.90 Unspecified osteoarthritis, unspecified site; I25.10 Atherosclerotic heart disease of native coronary artery without angina pectoris; F32.A Depression, unspecified; F41.9 Anxiety disorder, unspecified; I48.91 Unspecified atrial fibrillation; F17.200 Nicotine dependence, unspecified, uncomplicated; N18.9 Chronic kidney disease, unspecified; R91.1 Solitary pulmonary nodule; E11.22 Type 2 diabetes mellitus with diabetic chronic kidney disease; I25.2 Old myocardial infarction; Z88.8 Allergy status to other drugs, medicaments and biological substances; Z79.899 Other long term (current) drug therapy; Z99.81 Dependence on supplemental oxygen; Z51.5 Encounter for palliative care
CPT/HCPCS: 36415; 36600; 70450; 71045; 71250; 74018; 74176; 78582; 80053; 80061; 80305; 80320; 81001; 81003; 82140; 82803; 82948; 83036; 83605; 83690; 83735; 83880; 84100; 84145; 84443; 84484; 85018; 85025; 85379; 87040; 87081; 93005; 93306; 94640; 94660; 94760; 97161; 99285; A4314; A6258; A7015; A9539; A9540; G0378; J0456; J0696; J1630; J1644; J1815; J2060; J2274; J2920; J2930; J3490; J7030